=== PATIENT | male | born 1940 | race Caucasian/White ===

== ENCOUNTER 2017-07-19 17:24 | Inpatient (IN) | payer OTHER, MEDICARE ==
[~2017-07-19] VITALS: Ht 170.2 cm; Wt 96.5 kg
[~2017-07-19 17:24] MED LIST: ACET500T58 PO; ASPI-391 PO; BENA20TA12 PO; CMD5 PO; CYCL10TA6 PO; DLN100 PO; ENOX100I SQ; HYDRTAB53 PO; NITR0.4S UT; OMEP40CA PO; PHN/100 PO; PRED10TA PO; SUMA50TA15 PO; VERA240T20 PO
[2017-07-19] MEDS ORDERED: HYDR-4079 PO (17:49)
[2017-07-19] MEDS ORDERED: ASPI81TA28 PO (17:49)
[2017-07-19] MEDS ORDERED: OMEP40CA41 PO (17:49)
[2017-07-19] MEDS ORDERED: CRD4 PO (17:49)
[2017-07-19] MEDS ORDERED: FRS/40 PO (17:49)
--- NOTE | 2017-07-19 17:49 | EMERGENCY ROOM VISIT NOTE ---
History Report prepared by David: Jhonny Covarrubias Under the Supervision of: Dr. Will Ramirez D.O. First contact with patient: 17:32 Chief Complaint: CHEST PAIN Stated Complaint: CHEST PAIN Nursing Triage Summary: pt reports chest pain started a couple ago ago took 1 81 mg asa `1 hour ago. sx started after eating History of Present Illness The patient is a 77 year old male who presents to the Emergency Room with complaints of constant, severe, neck pain that radiates to his chest beginning a few hours ago. The patient states he was on his way home from [place] when his neck started hurting. He reports he stopped and took 81 mg of Aspirin. The patient notes he ate steak and vegetables for dinner. He states he also has shortness of breath and a headache. The patient reports deep breathing increases his discomfort. He notes he has a history of a PE and does not know if it feels the same as before. The patient states he was on blood thinners but is not on them anymore. He reports he is on Dilantin, blood pressure medication , and Prilosec. The patient denies abdominal pain, nausea, vomiting, pain in legs, swelling in legs, back pain, and a history of smoking or alcohol use. Source of History: patient Onset: few hours ago Position: neck, chest Symptom Intensity: severe Timing: constant Modifying Factors (Worsening): breathing (deep) Associated Symptoms: + headache, + SOB, No nausea, No vomiting, No abdominal pain, No back pain Note: Denies: pain in legs, swelling in legs Review of Systems See HPI for pertinent positives & negatives. A total of 10 systems reviewed and were otherwise negative. Past Medical & Surgical Medical Problems: (1) Benign hypertension (2) Seizure (3) Sleep apnea (4) TIA Family History Diabetes mellitus Heart disease Hypertension Lung disease Seizures Social History Smoking Status: Never Smoker Marital Status: Housing Status: lives with family Occupation Status: retired Current/Historical Medications Scheduled Aspirin (Aspirin Ec), 81 MG PO DAILY Benazepril & Hydrochlorothiazi (Lotensin Hct 20MG/25MG), 1 TAB PO DAILY Doxazosin Mesylate (Doxazosin Mesylate), 8 MG PO DAILY Furosemide (Lasix), 40 MG PO DIRECTED Nitroglycerin (Nitrostat), 0.4 MG UT PRN Omeprazole (Prilosec), 40 MG PO DAILY Phenytoin Sodium (Dilantin), 300 MG PO QAM Prednisone Tab (Prednisone), 10 MG PO QAM Sumatriptan Succinate (Imitrex), 50 MG PO PRN Verapamil Sust Rel (Calan Sr Ext Rel), 240 MG PO DAILY Scheduled PRN Hydrocodone/Acetaminophen 10MG/325MG ([place] 10MG/325MG), 1 TAB PO Q4H PRN for Pain Allergies Coded Allergies: No Known Allergies (Unverified , 02/19/15) spouse Physical Exam Vital Signs Date Time Temp Pulse Resp B/P (MAP) Pulse Ox O2 Delivery O2 Flow Rate FiO2 07/19/17 21:39 94 Nasal Cannula 3.0 07/19/17 21:21 76 22 118/76 93 Room Air 07/19/17 19:29 70 20 132/82 92 Room Air 07/19/17 17:57 72 07/19/17 17:56 94 Room Air 07/19/17 17:56 94 Room Air 07/19/17 17:30 36.6 77 22 141/82 93 Room Air Physical Exam GENERAL: Patient is awake, alert, and in moderate distress. Patient is showing anxiety and appear in pain. EYES: The conjunctivae are clear. The pupils are round and reactive. EARS, NOSE, MOUTH AND THROAT: The nose is without any evidence of any deformity. Mucous membranes are moist tongue is midline NECK: The neck is nontender and supple. RESPIRATORY: Normal respiratory effort is noted there is no evidence of wheezing rhonchi or rales CARDIOVASCULAR: Regular rate and rhythm noted there no murmurs rubs or gallops normal S1 normal S2 GASTROINTESTINAL: The abdomen is mildly distended but soft. No guarding or rigidity. Bowel sounds are present in all quadrants. Abdomen is nontender MUSCULOSKELETAL/EXTREMITIES: There is no evidence of gross deformity full range of motion is noted in the hips and shoulders SKIN: There is no obvious evidence of any rash. There are no petechiae, pallor or cyanosis noted. Trace pedal edema bilaterally. NEUROLOGIC: Patient is awake alert and oriented x3 Medical Decision & Procedures ER Provider Diagnostic Interpretation: Radiology results as stated below per my review and radiologist interpretation: (CHEST FOR PE) ANGIO WITH CT DOSE: 609.43 mGy.cm HISTORY: 77 years-old Male presents with acute atypical chest pain TECHNIQUE: Multiple CTA images of the chest were obtained after the intravenous administration of 93 ml Optiray 320. Coronal and sagittal MIPS were obtained from the axial data set and were submitted for review. A dose lowering technique was utilized adhering to the principles of ALARA. COMPARISON: Chest radiograph of same day, CTA of the chest 02/17/2014. FINDINGS: CTA: Moderate enlargement of the heart. Coronary arterial disease. 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 No aortic dissection identified. The imaged great vessels appear to be patent. Moderate atherosclerosis of the aorta. The pulmonary arterial tree is not well opacified. The lobar, segmental and subsegmental branches are not seen secondary to extensive respiratory motion. No central pulmonary embolus identified. CT CHEST: There is an ill-defined 1.5 x 0.9 cm low attenuating nodule of the inferior left thyroid lobe. Scattered nonspecific prominent lymph nodes throughout the mediastinum without pathologically enlarged lymph nodes identified. There is no pneumothorax or pleural effusion. Mild subsegmental scarring of the left lung apex. Scattered bilateral calcified granulomas. Groundglass and linear consolidative subsegmental opacities of the lung bases suggest areas of atelectasis/scarring. No lobar airspace consolidation to suggest pneumonia. Central airways are patent. Moderate sized hiatal hernia with partially intrathoracic stomach. No acute abnormality of the imaged upper abdomen. Mild symmetric bilateral gynecomastia. Bones appear intact. Remote appearing right-sided rib fractures. IMPRESSION: 1. Very limited study secondary to extensive respiratory motion. No central pulmonary embolus identified. 2. Mild subsegmental bibasilar atelectasis without focal airspace consolidation to suggest pneumonia. 3. Cardiomegaly with fusiform aneurysmal dilation of the ascending thoracic aorta beginning distal to the sinotubular junction, 4.7 x 4.7 cm slightly increased in size from comparison. 4. Moderate hiatal hernia. The above report was generated using voice recognition software. It may contain grammatical, syntax or spelling errors. Electronically signed by: Fidencio Soliz M.D. 07/19/2017 8:12 PM Dictated Date/Time: 07/19/2017 8:03 PM CHEST ONE VIEW PORTABLE HISTORY: 77 years-old Male CHEST PAIN acute atypical chest pain COMPARISON: Chest radiograph 11/08/2015 TECHNIQUE: Portable AP view of the chest FINDINGS: Cardiac silhouette is again enlarged. No pneumothorax or pleural effusion. Linear subsegmental bibasilar opacities are noted with areas of chronic interstitial coarsening. Moderate hiatal hernia. Bones of the chest appear grossly intact. IMPRESSION: 1. Cardiomegaly without overt pulmonary edema. 2. Linear subsegmental bibasilar opacities suggest atelectasis. 3. Hiatal hernia. The above report was generated using voice recognition software. It may contain grammatical, syntax or spelling errors. Electronically signed by: Fidencio Soliz M.D. 07/19/2017 6:58 PM Dictated Date/Time: 07/19/2017 6:57 PM Laboratory Results 07/19/17 17:45 Red Blood Count 4.49, Mean Corpuscular Volume 96.0, Mean Corpuscular Hemoglobin 33.6, Mean Corpuscular Hemoglobin Concent 35.0, Mean Platelet Volume 11.0, Neutrophils (%) (Auto) 74.1, Lymphocytes (%) (Auto) 12.5, Monocytes (%) (Auto) 10.3, Eosinophils (%) (Auto) 2.7, Basophils (%) (Auto) 0.3, Neutrophils # (Auto ) 7.88, Lymphocytes # (Auto) 1.33, Monocytes # (Auto) 1.09, Eosinophils # (Auto ) 0.29, Basophils # (Auto) 0.03 07/19/17 17:45 Test 07/19/17 17:45 White Blood Count 10.63 K/uL (4.8-10.8) Red Blood Count 4.49 M/uL (4.7-6.1) Hemoglobin 15.1 g/dL (14.0-18.0) Hematocrit 43.1 % (42-52) Mean Corpuscular Volume 96.0 fL (80-100) Mean Corpuscular Hemoglobin 33.6 pg (25-34) Mean Corpuscular Hemoglobin Concent 35.0 g/dl (32-36) Platelet Count 202 K/uL (130-400) Mean Platelet Volume 11.0 fL (7.4-10.4) Neutrophils (%) (Auto) 74.1 % Lymphocytes (%) (Auto) 12.5 % Monocytes (%) (Auto) 10.3 % Eosinophils (%) (Auto) 2.7 % Basophils (%) (Auto) 0.3 % Neutrophils # (Auto) 7.88 K/uL (1.4-6.5) Lymphocytes # (Auto) 1.33 K/uL (1.2-3.4) Monocytes # (Auto) 1.09 K/uL (0.11-0.59) Eosinophils # (Auto) 0.29 K/uL (0-0.5) Basophils # (Auto) 0.03 K/uL (0-0.2) RDW Standard Deviation 46.6 fL (36.4-46.3) RDW Coefficient of Variation 13.3 % (11.5-14.5) Immature Granulocyte % (Auto) 0.1 % Immature Granulocyte # (Auto) 0.01 K/uL (0.00-0.02) Prothrombin Time 10.7 SECONDS (9.0-12.0) Prothromb Time International Ratio 1.0 (0.9-1.1) Activated Partial Thromboplast Time 25.0 SECONDS (21.0-31.0) Partial Thromboplastin Ratio 1.0 D-Dimer 500 ug/L FEU (0-500) Anion Gap 9.0 mmol/L (3-11) Est Creatinine Clear Calc Drug Dose 77.0 ml/min Estimated GFR () 96.0 Estimated GFR (Non- 82.9 BUN/Creatinine Ratio 20.0 (10-20) Calcium Level 8.4 mg/dl (8.5-10.1) Total Bilirubin 0.3 mg/dl (0.2-1) Direct Bilirubin < 0.1 mg/dl (0-0.2) Aspartate Amino Transf (AST/SGOT) 16 U/L (15-37) Alanine Aminotransferase (ALT/SGPT) 27 U/L (12-78) Alkaline Phosphatase 83 U/L (45-117) Total Creatine Kinase 52 U/L (39-308) Creatine Kinase MB 0.8 ng/ml (0.5-3.6) Creatine Kinase MB Ratio 1.5 (0-3.0) Troponin I < 0.015 ng/ml (0-0.045) Total Protein 6.7 gm/dl (6.4-8.2) Albumin 3.5 gm/dl (3.4-5.0) Lipase 56 U/L (73-393) Phenytoin (Dilantin) Level 17.0 mcg/mL (10-20) Laboratory results per my review. Medications Administered Medications (Trade) Dose Ordered Sig/Mike Route Start Time Stop Time Status Last Admin Dose Admin Al Hydroxide/Mg Hydroxide (Maalox Susp) 30 ml NOW STAT PO 07/19/17 19:12 07/19/17 19:13 DC 07/19/17 19:22 30 ML Morphine Sulfate (MoRPHine SULFATE INJ) 4 mg Q15M PRN IV 07/19/17 20:00 08/02/17 19:59 07/19/17 21:19 4 MG Ondansetron HCl (Zofran Inj) 4 mg NOW STAT IV 07/19/17 19:59 07/19/17 20:00 DC 07/19/17 20:08 4 MG ECG Indication: chest pain Rate (beats per minute): 78 Rhythm: normal sinus Findings: no ectopy, other (No acute ST segment abnormalities.) Comparison ECG Date: 02/19/14 Change: no significant change Change: Patient's EKG was interpreted by me. ED Course 1732: The patient was evaluated in room A11B. A complete history and physical examination were performed. 1911: Ordered Maalox Susp 30ml PO 1913: I reevaluated the patient and discussed current exam findings. He agreed to have a CT scan completed. 1958: Ordered Ondansetron HCl 4mg IV 1999: Ordered Morphine Sulfate 4mg IV 2019: Upon reevaluation, the patient is resting comfortably. I discussed results and treatment plan with him. He verbalizes agreement and understanding. The patient will be evaluated for further management and care. 2200: I discussed the patient's case with Dr. Chavira, [facility] Hospitalist. The patient will be evaluated for further management and care. Medical Decision Differential diagnosis: Etiologies such as cardiac ischemia, aortic dissection, pulmonary embolism, pneumonia, pneumothorax, musculoskeletal, infections, pericarditis, myocarditis , esophageal rupture, gastrointestinal, as well as others were entertained. Nursing notes reviewed. The patient is a 77-year-old male who presented to the emergency department for an evaluation of chest discomfort. The patient describes heaviness which was retrosternal and rating to his neck. The patient states that the patient was nonexertional however because of his age and other comorbidities further tests were obtained to rule out a cardiac cause for his symptoms. I discussed the patient's laboratory and radiographic studies with him. I also discussed the limitations of the emergency department workup for chest pain with him. The patient was reevaluated multiple times. He was also treated with Maalox as well as pain medication. His symptoms slowly improved. Given the patient's age and comorbidities I discussed his case with the on-call [facility] hospitalist. The patient was uncomfortable with the initial workup for ruling out cardiac disease. He also states that he [place] approximately [place] away and felt he may have trouble returning to the emergency department if his symptoms worsen. Medication Reconcilliation Current Medication List: was personally reviewed by me Blood Pressure Screening Patient's blood pressure: Elevated blood pressure Blood pressure disposition: Elevated BP felt to be situational Consults Time Called: 2027 Consulting Physician: Dr. Chavira, [facility] Hospitalist Returned Call: 2200 I discussed the patient's case with Dr. Chavira, [facility] Hospitalist. The patient will be evaluated for further management and care. Impression Primary Impression: Substernal precordial chest pain Additional Impression: Hiatal hernia Scribe Attestation The scribe's documentation has been prepared under my direction and personally reviewed by me in its entirety. I confirm that the note above accurately reflects all work, treatment, procedures, and medical decision making performed by me. Departure Information Dispostion Being Evaluated By Hospitalist Referrals Jyoti Recinos PA-C (PCP) Patient Instructions My [facility] Health Problem Qualifiers
[2017-07-19 18:04] LABS: BASO % 0.3 %; BASO ABS # 0.03 K/uL (0-0.2); EOS % 2.7 %; EOS ABS # 0.29 K/uL (0-0.5); HEMATOCRIT 43.1 % (42-52); HEMOGLOBIN 15.1 g/dL (14.0-18.0); IG# 0.01 K/uL (0.00-0.02); LYMPH % 12.5 %; LYMPH ABS # 1.33 K/uL (1.2-3.4); MEAN CORPUSCULAR HEMOGLOBIN 33.6 pg (25-34); MONO % 10.3 %; MONO ABS # 1.09 K/uL (0.11-0.59); NEUT % 74.1 %; NEUT ABS # 7.88 K/uL (1.4-6.5); PLATELET COUNT 202 K/uL (130-400); RED CELL DISTRIBUTION WIDTH CV 13.3 % (11.5-14.5); RED CELL DISTRIBUTION WIDTH SD 46.6 fL (36.4-46.3); WHITE BLOOD COUNT 10.63 K/uL (4.8-10.8)
[2017-07-19 18:28] LABS: ALBUMIN 3.5 gm/dl (3.4-5.0); ALT/SGPT 27 U/L (12-78); BLOOD UREA NITROGEN 18 mg/dl (7-18); CALCIUM 8.4 mg/dl (8.5-10.1); CARBON DIOXIDE 30 mmol/L (21-32); CREATININE 0.88 mg/dl (0.60-1.40); GLUCOSE 140 mg/dl (70-99); LIPASE 56 U/L (73-393); POTASSIUM 3.4 mmol/L (3.5-5.1); SODIUM 141 mmol/L (136-145)
[2017-07-19 18:34] LABS: ALKALINE PHOSPHATASE 83 U/L (45-117); AST/SGOT 16 U/L (15-37); CKMB 0.8 ng/ml (0.5-3.6); TOTAL PROTEIN 6.7 gm/dl (6.4-8.2)
--- NOTE | 2017-07-19 18:59 | DIAGNOSTIC IMAGING REPORT ---
CHEST ONE VIEW PORTABLE HISTORY: 77 years-old Male CHEST PAIN acute atypical chest pain COMPARISON: Chest radiograph 11/08/2015 TECHNIQUE: Portable AP view of the chest FINDINGS: Cardiac silhouette is again enlarged. No pneumothorax or pleural effusion. Linear subsegmental bibasilar opacities are noted with areas of chronic interstitial coarsening. Moderate hiatal hernia. Bones of the chest appear grossly intact. IMPRESSION: 1. Cardiomegaly without overt pulmonary edema. 2. Linear subsegmental bibasilar opacities suggest atelectasis. 3. Hiatal hernia. The above report was generated using voice recognition software. It may contain grammatical, syntax or spelling errors. Electronically signed by: Fidencio Soliz M.D. 07/19/2017 6:58 PM Dictated Date/Time: 07/19/2017 6:57 PM
[2017-07-19] MEDS ORDERED: ALUMINUM/MAGNESIUM SUSP 30 ML UDC PO STA (19:12)
[2017-07-19] MEDS ORDERED: OPTIRAY 320 IV PRN (19:30)
[2017-07-19] MEDS ORDERED: ONDANSETRON INJ 2 MG/ML 2 ML VIAL IV STA (19:59)
[2017-07-19] MEDS: MoRPHine SULFATE 4 MG/ML 1 ML CARP\\VIAL IV PRN ×3 (20:08→23:09)
--- NOTE | 2017-07-19 20:14 | DIAGNOSTIC IMAGING REPORT ---
(CHEST FOR PE) ANGIO WITH CT DOSE: 609.43 mGy.cm HISTORY: 77 years-old Male presents with acute atypical chest pain TECHNIQUE: Multiple CTA images of the chest were obtained after the intravenous administration of 93 ml Optiray 320. Coronal and sagittal MIPS were obtained from the axial data set and were submitted for review. A dose lowering technique was utilized adhering to the principles of ALARA. COMPARISON: Chest radiograph of same day, CTA of the chest 02/17/2014. FINDINGS: CTA: Moderate enlargement of the heart. Coronary arterial disease. 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 No aortic dissection identified. The imaged great vessels appear to be patent. Moderate atherosclerosis of the aorta. The pulmonary arterial tree is not well opacified. The lobar, segmental and subsegmental branches are not seen secondary to extensive respiratory motion. No central pulmonary embolus identified. CT CHEST: There is an ill-defined 1.5 x 0.9 cm low attenuating nodule of the inferior left thyroid lobe. Scattered nonspecific prominent lymph nodes throughout the mediastinum without pathologically enlarged lymph nodes identified. There is no pneumothorax or pleural effusion. Mild subsegmental scarring of the left lung apex. Scattered bilateral calcified granulomas. Groundglass and linear consolidative subsegmental opacities of the lung bases suggest areas of atelectasis/scarring. No lobar airspace consolidation to suggest pneumonia. Central airways are patent. Moderate sized hiatal hernia with partially intrathoracic stomach. No acute abnormality of the imaged upper abdomen. Mild symmetric bilateral gynecomastia. Bones appear intact. Remote appearing right-sided rib fractures. IMPRESSION: 1. Very limited study secondary to extensive respiratory motion. No central pulmonary embolus identified. 2. Mild subsegmental bibasilar atelectasis without focal airspace consolidation to suggest pneumonia. 3. Cardiomegaly with fusiform aneurysmal dilation of the ascending thoracic aorta beginning distal to the sinotubular junction, 4.7 x 4.7 cm slightly increased in size from comparison. 4. Moderate hiatal hernia. The above report was generated using voice recognition software. It may contain grammatical, syntax or spelling errors. Electronically signed by: Fidencio Soliz M.D. 07/19/2017 8:12 PM Dictated Date/Time: 07/19/2017 8:03 PM
[2017-07-19] MEDS ORDERED: POLYETHYLENE (MIRALAX) 17 GM PACK PO PRN (22:45)
[2017-07-19] MEDS ORDERED: ACETAMINOPHEN 325 MG TAB PO PRN (22:45)
[2017-07-19] MEDS ORDERED: ONDANSETRON INJ 2 MG/ML 2 ML VIAL IV PRN (22:45)
[2017-07-19] MEDS ORDERED: NITROGLYCERIN 0.4 MG SL PER TAB CHARGE SL PRN (22:45)
[2017-07-19] MEDS ORDERED: MAGNESIUM HYDROXIDE SUSP 30 ML UDC PO PRN (22:45)
[2017-07-19] MEDS ORDERED: ALUMINUM/MAGNESIUM/SIMETH (MAALOX MAX) 30 ML UDC PO PRN (22:45)
[2017-07-19] MEDS ORDERED: POTASSIUM CHLORIDE 10 MEQ TABCR PO STA (23:03)
[2017-07-19] MEDS ORDERED: POTASSIUM CHLORIDE 20 MEQ TABCR PO STA (23:03)
--- NOTE | 2017-07-19 23:21 | History and Physical ---
History & Physical Date & Time of Service: Jul 19, 2017 at 22:55 Chief Complaint: Chest Pain Primary Care Physician: Jyoti Recinos PA-C History of Present Illness Source: patient, family This is a 77 yo m with a h/o PE and TIA that presents to us with substernal chest pain with radiation to the right neck. The family was apparently out for dinner and soon after dinner he experienced sharp right sided neck pain and substernal chest pain. He was SOB acutely without nausea or diaphoresis. was concerned because of his history of PE and TIA and brought him into the ED for evaluation. He states that his pain is currently a 3/10 and is now just an "ache" it is worse with any sort of deep breathing. He denies any SOB now however he is laying flat with oxygen for his severe BRIANA which he does not use a CPAP for due to intolerance. He has no history of MN, non smoker but exposure to second hand smoke as a child. Patient states he would be unable to undergo exercise stress test secondary to limited ambulation. Aside from the chest pain he has been suffering from intermittent RUQ pain whenever he eats fatty food or dairy. It was originally short lived but is now lasting for many hours and the notes he has been purposely not eating as he is afraid to trigger the pain. He has no accompanied diarrhea or constipation with it or any blood in his stool. He had an appendectomy but not cholecystectomy. He has also had worsening incontinence and straining with urination. He typically suffers from a lot of nocturia however feels still as frequent but volume is low. Has only been on Doxazosin for his BPH. Patient is at [facility] with mild cognitive impairment. Past Medical/Surgical History Medical Problems: (1) Benign hypertension Status: Chronic (2) Seizure Status: Chronic (3) Sleep apnea Status: Chronic (4) TIA Status: Resolved Family History Diabetes mellitus Heart disease Hypertension Lung disease Seizures Social History Smoking Status: Never Smoker Smokeless Tobacco Use: No Alcohol Use: none Drug Use: none Marital Status: Housing status: lives with significant other Occupational Status: retired Multi-Drug Resistant Organisms History of MDRO: No Allergies Coded Allergies: No Known Allergies (Unverified , 02/19/15) spouse Home Medications Scheduled Aspirin (Aspirin Ec), 81 MG PO DAILY Benazepril & Hydrochlorothiazi (Lotensin Hct 20MG/25MG), 1 TAB PO DAILY Doxazosin Mesylate (Doxazosin Mesylate), 8 MG PO DAILY Furosemide (Lasix), 40 MG PO DIRECTED Nitroglycerin (Nitrostat), 0.4 MG UT PRN Omeprazole (Prilosec), 40 MG PO DAILY Phenytoin Sodium (Dilantin), 300 MG PO QAM Prednisone Tab (Prednisone), 10 MG PO QAM Sumatriptan Succinate (Imitrex), 50 MG PO PRN Verapamil Sust Rel (Calan Sr Ext Rel), 240 MG PO DAILY Scheduled PRN Hydrocodone/Acetaminophen 10MG/325MG ([place] 10MG/325MG), 1 TAB PO Q4H PRN for Pain Review of Systems Constitutional: No fever, No chills, No sweats Eyes: No worsening of vision ENT: No hearing loss Respiratory: No cough, No sputum, No wheezing, No shortness of breath, No dyspnea on exertion, No dyspnea at rest, No hemoptysis Cardiovascular: + chest pain (as above ) Abdomen: + pain (as above ), No nausea, No vomiting, No diarrhea, No constipation, No GI bleeding Musculoskeletal: No joint pain, No muscle pain Genitourinary - Male: + urinary frequency, + urinary retention, + urinary incontinence, No hematuria, No dysuria Neurologic: No weakness, No numbness/tingling, No balance problems Psychiatric: No depression symptoms Endocrine: No fatigue Hematologic / Lymphatic: No abnormal bleeding/bruising Integumentary: No rash Allergic / Immunologic: No environmental allergies Physical Exam Vital Signs Date Time Temp Pulse Resp B/P (MAP) Pulse Ox O2 Delivery O2 Flow Rate FiO2 07/19/17 21:39 94 Nasal Cannula 3.0 07/19/17 21:21 76 22 118/76 93 Room Air 07/19/17 19:29 70 20 132/82 92 Room Air 07/19/17 17:57 72 07/19/17 17:56 94 Room Air 07/19/17 17:56 94 Room Air 07/19/17 17:30 36.6 77 22 141/82 93 Room Air General Appearance: no apparent distress Head: normocephalic, atraumatic Eyes: normal inspection ENT: normal ENT inspection Neck: supple, + pertinent finding (no torticolis noted) Respiratory/Chest: normal breath sounds, no respiratory distress, no accessory muscle use, + decreased breath sounds (bilat bases) Cardiovascular: regular rate, rhythm, no murmur, normal peripheral pulses Abdomen/GI: normal bowel sounds, non tender, + distended, + pertinent finding ( positive adams sign, no CVA tendernes, rebound, obturator sign or vivian point tenderness) Back: normal inspection, no CVA tenderness, normal range of motion Extremities/Musculoskelatal: normal inspection, no calf tenderness, + pedal edema (tr bilat ) Neurologic/Psych: alert, normal mood/affect, oriented x 3, + pertinent finding (forgetful during interview, some orientation questions required coaxing ) Skin: normal color, warm/dry, no rash Lymphatic: no adenopathy Diagnostics Laboratory Results Results Past 24 Hours Test 07/19/17 17:45 Range/Units White Blood Count 10.63 4.8-10.8 K/uL Red Blood Count 4.49 4.7-6.1 M/uL Hemoglobin 15.1 14.0-18.0 g/dL Hematocrit 43.1 42-52 % Mean Corpuscular Volume 96.0 80-100 fL Mean Corpuscular Hemoglobin 33.6 25-34 pg Mean Corpuscular Hemoglobin Concent 35.0 32-36 g/dl Platelet Count 202 130-400 K/uL Mean Platelet Volume 11.0 7.4-10.4 fL Neutrophils (%) (Auto) 74.1 % Lymphocytes (%) (Auto) 12.5 % Monocytes (%) (Auto) 10.3 % Eosinophils (%) (Auto) 2.7 % Basophils (%) (Auto) 0.3 % Neutrophils # (Auto) 7.88 1.4-6.5 K/uL Lymphocytes # (Auto) 1.33 1.2-3.4 K/uL Monocytes # (Auto) 1.09 0.11-0.59 K/uL Eosinophils # (Auto) 0.29 0-0.5 K/uL Basophils # (Auto) 0.03 0-0.2 K/uL RDW Standard Deviation 46.6 36.4-46.3 fL RDW Coefficient of Variation 13.3 11.5-14.5 % Immature Granulocyte % (Auto) 0.1 % Immature Granulocyte # (Auto) 0.01 0.00-0.02 K/uL Prothrombin Time 10.7 9.0-12.0 SECONDS Prothromb Time International Ratio 1.0 0.9-1.1 Activated Partial Thromboplast Time 25.0 21.0-31.0 SECONDS Partial Thromboplastin Ratio 1.0 D-Dimer 500 0-500 ug/L FEU Sodium Level 141 136-145 mmol/L Potassium Level 3.4 3.5-5.1 mmol/L Chloride Level 102 98-107 mmol/L Carbon Dioxide Level 30 21-32 mmol/L Anion Gap 9.0 3-11 mmol/L Blood Urea Nitrogen 18 7-18 mg/dl Creatinine 0.88 0.60-1.40 mg/dl Est Creatinine Clear Calc Drug Dose 77.0 ml/min Estimated GFR () 96.0 Estimated GFR (Non- 82.9 BUN/Creatinine Ratio 20.0 10-20 Random Glucose 140 70-99 mg/dl Calcium Level 8.4 8.5-10.1 mg/dl Total Bilirubin 0.3 0.2-1 mg/dl Direct Bilirubin < 0.1 0-0.2 mg/dl Aspartate Amino Transf (AST/SGOT) 16 15-37 U/L Alanine Aminotransferase (ALT/SGPT) 27 12-78 U/L Alkaline Phosphatase 83 45-117 U/L Total Creatine Kinase 52 39-308 U/L Creatine Kinase MB 0.8 0.5-3.6 ng/ml Creatine Kinase MB Ratio 1.5 0-3.0 Troponin I < 0.015 0-0.045 ng/ml Total Protein 6.7 6.4-8.2 gm/dl Albumin 3.5 3.4-5.0 gm/dl Lipase 56 73-393 U/L Phenytoin (Dilantin) Level 17.0 10-20 mcg/mL Diagnostic Radiology (CHEST FOR PE) ANGIO WITH CT DOSE: 609.43 mGy.cm HISTORY: 77 years-old Male presents with acute atypical chest pain TECHNIQUE: Multiple CTA images of the chest were obtained after the intravenous administration of 93 ml Optiray 320. Coronal and sagittal MIPS were obtained from the axial data set and were submitted for review. A dose lowering technique was utilized adhering to the principles of ALARA. COMPARISON: Chest radiograph of same day, CTA of the chest 02/17/2014. FINDINGS: CTA: Moderate enlargement of the heart. Coronary arterial disease. 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 No aortic dissection identified. The imaged great vessels appear to be patent. Moderate atherosclerosis of the aorta. The pulmonary arterial tree is not well opacified. The lobar, segmental and subsegmental branches are not seen secondary to extensive respiratory motion. No central pulmonary embolus identified. CT CHEST: There is an ill-defined 1.5 x 0.9 cm low attenuating nodule of the inferior left thyroid lobe. Scattered nonspecific prominent lymph nodes throughout the mediastinum without pathologically enlarged lymph nodes identified. There is no pneumothorax or pleural effusion. Mild subsegmental scarring of the left lung apex. Scattered bilateral calcified granulomas. Groundglass and linear consolidative subsegmental opacities of the lung bases suggest areas of atelectasis/scarring. No lobar airspace consolidation to suggest pneumonia. Central airways are patent. Moderate sized hiatal hernia with partially intrathoracic stomach. No acute abnormality of the imaged upper abdomen. Mild symmetric bilateral gynecomastia. Bones appear intact. Remote appearing right-sided rib fractures. IMPRESSION: 1. Very limited study secondary to extensive respiratory motion. No central pulmonary embolus identified. 2. Mild subsegmental bibasilar atelectasis without focal airspace consolidation to suggest pneumonia. 3. Cardiomegaly with fusiform aneurysmal dilation of the ascending thoracic aorta beginning distal to the sinotubular junction, 4.7 x 4.7 cm slightly increased in size from comparison. 4. Moderate hiatal hernia. CHEST ONE VIEW PORTABLE HISTORY: 77 years-old Male CHEST PAIN acute atypical chest pain COMPARISON: Chest radiograph 11/08/2015 TECHNIQUE: Portable AP view of the chest FINDINGS: Cardiac silhouette is again enlarged. No pneumothorax or pleural effusion. Linear subsegmental bibasilar opacities are noted with areas of chronic interstitial coarsening. Moderate hiatal hernia. Bones of the chest appear grossly intact. IMPRESSION: 1. Cardiomegaly without overt pulmonary edema. 2. Linear subsegmental bibasilar opacities suggest atelectasis. 3. Hiatal hernia. EKG HR 78, no ectopy or ischemic changes appreciated Impression Assessment and Plan This is a 77 yo m with a history of PE/ TIA here for chest pain evaluation; Heart score is 3 Chest pain NYD - assess for cardiac source, tele admission, HEART score is 3 with low suspicion for cardiac source - troponin trend - patient unable to undergo exercise stress test, dobutamine stress test ordered at this time; if positive troponin will change to echo alone - npo after midnight - if positive troponin on repeat will add heparin drip - EKG in am - continue ASA 81 mg daily RUQ pain, nausea, poor appetite- concerning for cholelithiasis/ cholecysitis - USG abd - CMP repeat in am - NPO at this time Severe BPH - continue Doxazosin 8 mg daily; consider addition of finasteride/ Tamsulosin ( if bp could tolerate) - Straight cath prn - UA, culture if indicated Seizure disorder - Dilantin 300 mg q am HTN - continue Verapamil 240 mg daily Continue Benazepril 20 mg and HCTZ 25 mg daily PMR - cont Pred 10 mg daily, discussed consideration to lowest titratable dose as he has never tried a dose continually < 10 mg Hiatal hernia/ GERD - Omeprazole 40 mg --> Protonix equivalent Mild cognitive impairment - discussed addition of memantine possibly as an outpatient DVT Prophylaxis/ H/O PE - SCD, consider chemical prophylaxis after troponin trend eval Full code Resident Physician Supervision Note: I was present with Dr. Campos during the history and exam. I discussed the case with the resident and agree with the findings and plan as documented in the note. Any exceptions or clarifications are listed here: 77 y/o M HTN, seizures, BPH, cognitive impairment, Hx TIA, Hx PE. Pt presents with CP vs epigastric pain. OE AAO x 2 S1,2 R CTAB Tender in upper quadrants LE edema present P: Pt assigned to obs for R/O MN He was sent for an RUQ US as well Will cont Verapamil, Benazepril Provided with ASA Cont Doxazosin, Flomax Documented By: Sunday Chavira Level of Care Telemetry Resuscitation Status FULL RESUSCITATION VTE Prophylaxis VTE Risk Assessment Done? Y/N: Yes Risk Level: High Given or contraindicated: SCD's Note Total Time: Critical Care 30 - 74 minutes Additional Copies To Jyoti Recinos PA-C
[2017-07-19 23:27] VITALS: BP 131/71; PULSE 77; TEMP 37; O2SAT 93; Ht 170.2 cm; Wt 96.5 kg
[2017-07-20] MEDS: MoRPHine SULFATE 2 MG/ML CARP IV PRN ×3 (01:26→06:02)
[2017-07-20 01:29] VITALS: BP 122/75; PULSE 75; TEMP 36.9; O2SAT 92
[2017-07-20] MEDS ORDERED: IV FLUIDS COMPLETED PRN (03:00)
[2017-07-20 05:30] VITALS: BP 114/69; PULSE 86; TEMP 36.3; O2SAT 91
[2017-07-20] MEDS ORDERED: GI COCKTAIL PO ONE (06:30)
[2017-07-20 06:34] LABS: BASO % 0.2 %; BASO ABS # 0.02 K/uL (0-0.2); EOS % 3.3 %; EOS ABS # 0.35 K/uL (0-0.5); HEMATOCRIT 43.1 % (42-52); HEMOGLOBIN 14.4 g/dL (14.0-18.0); IG# 0.02 K/uL (0.00-0.02); LYMPH % 11.7 %; LYMPH ABS # 1.25 K/uL (1.2-3.4); MEAN CELL VOLUME 97.1 fL (80-100); MEAN CORPUSCULAR HEMOGLOBIN 32.4 pg (25-34); MEAN CORPUSCULAR HGB CONC 33.4 g/dl (32-36); MEAN PLATELET VOLUME 11.2 fL (7.4-10.4); MONO % 12.9 %; MONO ABS # 1.38 K/uL (0.11-0.59); NEUT % 71.7 %; NEUT ABS # 7.65 K/uL (1.4-6.5); PLATELET COUNT 198 K/uL (130-400); RED CELL DISTRIBUTION WIDTH CV 13.4 % (11.5-14.5); RED CELL DISTRIBUTION WIDTH SD 47.1 fL (36.4-46.3); WHITE BLOOD COUNT 10.67 K/uL (4.8-10.8)
--- NOTE | 2017-07-20 06:53 | DIAGNOSTIC IMAGING REPORT ---
ABDOMEN COMPLETE (US) CLINICAL HISTORY: RUQ pain with fatty food COMPARISON STUDY: CT of the abdomen and pelvis August 13, 2012 and right upper corner ultrasound November 12, 2015. FINDINGS: Exam is mildly compromised by suboptimal penetration. No hepatic lesions are identified and there is no biliary ductal dilatation. No shadowing gallstones are noted. A small amount of sludge is noted within the gallbladder. There is a suspected tiny gallbladder polyp. No gallbladder wall thickening is noted. There was no sonographic Culver sign. Pancreas was obscured by overlying bowel gas. The right kidney measures 11.1 cm and the left measured 12.7 cm. There were numerous bilateral renal lesions. The majority of these were anechoic and reflect cysts. A few contain thin septations and likely reflect cysts as well. The largest is within the left kidney, 6.4 cm no hydronephrosis was noted. The abdominal aorta was partially obscured. Caliber of the distal abdominal aorta was normal. Size of the spleen was normal. IMPRESSION: 1. Suspected sludge within the gallbladder. No shadowing gallstones. Suspected tiny gallbladder polyp. No evidence for acute cholecystitis. 2. No biliary ductal dilatation. 3. Study compromised by suboptimal penetration. Largely obscured pancreas. 4. Numerous bilateral renal cysts, several of which contain thin septations. Electronically signed by: Mo Stallings M.D. 07/20/2017 6:52 AM Dictated Date/Time: 07/20/2017 6:47 AM
[2017-07-20] MEDS ORDERED: ALUMINUM/MAGNESIUM SUSP 18 ML, LIDOCAINE HCL 2% VISCOUS SOLN 6 ML, BARCODE IDENTIFIER 1 EA PO ONE ×2 (07:00)
[2017-07-20 07:05] LABS: ALBUMIN 3.3 gm/dl (3.4-5.0); CALCIUM 8.7 mg/dl (8.5-10.1); CREATININE 0.74 mg/dl (0.60-1.40); POTASSIUM 3.6 mmol/L (3.5-5.1)
[2017-07-20 07:09] LABS: TOTAL PROTEIN 6.4 gm/dl (6.4-8.2)
[2017-07-20 07:12] VITALS: BP 108/67; PULSE 92; TEMP 37.6; O2SAT 91
[2017-07-20] MEDS: HEPARIN SOD 5000 UNIT/0.5 ML CARP SQ SCH ×2 (09:00→20:23)
--- NOTE | 2017-07-20 11:37 | Gastrointestinal Consultation ---
Gastrointestinal Consultation Date of Consultation: Jul 20, 2017 Attending Physician: Evelyn Consulting Physician: Leanne Reason for Consultation: RUQ pain, GB sludge History of Present Illness Patient is a 77 year old male w/ history of GERD, HH, TIA, PE who presented through the ED for evaluation of acute chest pain w/ radiation to his jaw - GI was asked to evaluate the pt as he has had intermittent RUQ pain, nausea for a few months and imaging w/ GB sludge w/ normal LFTs and normal lipase. Pt was seen and evaluated, chart reviewed. Family at bedside who aided in history. Pt notes over the past few months, he has had intermittent right sided discomfort, worse w/ fatty foods, diary products. He has made some dietary changes w/ mild improvement, but symptoms still persists. Pain can radiate to his back when present w/ nausea, no vomiting. Notes yesterday after eating developed a different pain - chest pain, located in the epigastric region w/ radiation to right neck and jaw. There was associated SOB. No nausea. No vomiting. No RUQ pain. No diaphoresis. He notes he continues to have this pain, but it is less severe and more of an ache. Moves his bowels daily, formed. No black or bloody stools. No fever, chills, weight loss. HIDA: pending ABD US: Suspected sludge within the gallbladder. No shadowing gallstones. Suspected tiny gallbladder polyp. No evidence for acute cholecystitis. No biliary ductal dilatation. Study compromised by suboptimal penetration. Largely obscured pancreas. Numerous bilateral renal cysts, several of which contain thin septations Chest CTA: Very limited study secondary to extensive respiratory motion. No central pulmonary embolus identified. Mild subsegmental bibasilar atelectasis without focal airspace consolidation to suggest pneumonia. Cardiomegaly with fusiform aneurysmal dilation of the ascending thoracic aorta beginning distal to the sinotubular junction, 4.7 x 4.7 cm slightly increased in size from comparison. Moderate hiatal hernia. Chest XR: Cardiomegaly without overt pulmonary edema. Linear subsegmental bibasilar opacities suggest atelectasis. Hiatal hernia. Past Medical/Surgical History Medical Problems: (1) Hiatal hernia Status: Acute (2) Substernal precordial chest pain Status: Acute Past Medical History: HTN, seizure, sleep apnea, PE, TIA, GERD, HH Past Surgical History: EGD, colon Family History Diabetes mellitus Heart disease Hypertension Lung disease Seizures Social History Smoking Status: Never Smoker Drug Use: none Marital Status: Housing Status: lives with family Occupation Status: retired Allergies Coded Allergies: No Known Allergies (Unverified , 02/19/15) spouse Current Medications Home Meds and Scripts Medications Dose Route/Sig Max Daily Dose Days Date Category Dose Instructions Aspirin Ec (Aspirin) 81 Mg Tab 81 Mg PO DAILY 07/19/17 Reported [place] 10MG/325MG (Acetaminophen/Hydrocodone Bitart) Tab 1 Tab PO Q4H PRN 07/19/17 Reported PRN PAIN Lasix (Furosemide) 40 Mg Tab 40 Mg PO DIRECTED 07/19/17 Reported TAKES ONLY A FEW DAYS A WEEK PER SPOUSE Doxazosin Mesylate 4 Mg Tab 8 Mg PO DAILY 07/19/17 Reported Prilosec (Omeprazole) 40 Mg Cap 40 Mg PO DAILY 07/19/17 Reported Prednisone 10 Mg Tab 10 Mg PO QAM 01/07/14 Reported Imitrex (Sumatriptan Succinate) 50 Mg Tab 50 Mg PO PRN 01/07/14 Reported HAS NOT TAKEN LATELY Dilantin (Phenytoin Sodium) 100 Mg Cap 300 Mg PO QAM 01/07/14 Reported Nitrostat (Nitroglycerin) 0.4 Mg Sub 0.4 Mg UT PRN 08/13/12 Reported PT DOES NOT HAVE CURRENT Calan Sr Ext Rel (Verapamil HCl) 240 Mg Tabcr 240 Mg PO DAILY 08/13/12 Reported Lotensin Hct 20MG/25MG (Benazepril & Hydrochlorothiazi) 1 Tab Tab 1 Tab PO DAILY 08/13/12 Reported Review of Systems Constitutional: No fever, No chills, No weight loss Respiratory: + shortness of breath, No cough Cardiac: + chest pain, No edema Abdomen: + pain, + nausea, No vomiting, No diarrhea, No constipation, No GI bleeding Physical Exam Date Time Temp Pulse Resp B/P (MAP) Pulse Ox O2 Delivery O2 Flow Rate FiO2 07/20/17 08:00 Nasal Cannula 2.0 07/20/17 07:12 37.6 92 22 108/67 (81) 91 Nasal Cannula 2.0 07/20/17 05:30 36.3 86 20 114/69 (84) 91 Nasal Cannula 2.0 07/20/17 04:00 Nasal Cannula 2.0 07/20/17 01:29 36.9 75 20 122/75 (91) 92 Room Air 2.0 07/19/17 23:27 37.0 77 22 131/71 93 Nasal Cannula 2.0 07/19/17 23:11 80 20 99/74 95 Nasal Cannula 2.0 07/19/17 21:39 94 Nasal Cannula 3.0 07/19/17 21:21 76 22 118/76 93 Room Air 07/19/17 19:29 70 20 132/82 92 Room Air 07/19/17 17:57 72 07/19/17 17:56 94 Room Air 07/19/17 17:56 94 Room Air 07/19/17 17:30 36.6 77 22 141/82 93 Room Air General Appearance: no apparent distress Eyes: PERRL ENT: hearing grossly normal Neck: supple Respiratory/Chest: lungs clear, normal breath sounds Cardiovascular: regular rate, rhythm, no JVD Abdomen: normal bowel sounds, soft, no organomegaly, + tenderness (epigastric, RUQ) Neurologic/Psych: alert, normal mood/affect, oriented x 3 Skin: normal color Laboratory Results Last 24 Hours Test 07/19/17 17:45 07/20/17 00:33 07/20/17 01:17 07/20/17 05:55 White Blood Count 10.63 K/uL 10.67 K/uL Red Blood Count 4.49 M/uL 4.44 M/uL Hemoglobin 15.1 g/dL 14.4 g/dL Hematocrit 43.1 % 43.1 % Mean Corpuscular Volume 96.0 fL 97.1 fL Mean Corpuscular Hemoglobin 33.6 pg 32.4 pg Mean Corpuscular Hemoglobin Concent 35.0 g/dl 33.4 g/dl Platelet Count 202 K/uL 198 K/uL Mean Platelet Volume 11.0 fL 11.2 fL Neutrophils (%) (Auto) 74.1 % 71.7 % Lymphocytes (%) (Auto) 12.5 % 11.7 % Monocytes (%) (Auto) 10.3 % 12.9 % Eosinophils (%) (Auto) 2.7 % 3.3 % Basophils (%) (Auto) 0.3 % 0.2 % Neutrophils # (Auto) 7.88 K/uL 7.65 K/uL Lymphocytes # (Auto) 1.33 K/uL 1.25 K/uL Monocytes # (Auto) 1.09 K/uL 1.38 K/uL Eosinophils # (Auto) 0.29 K/uL 0.35 K/uL Basophils # (Auto) 0.03 K/uL 0.02 K/uL RDW Standard Deviation 46.6 fL 47.1 fL RDW Coefficient of Variation 13.3 % 13.4 % Immature Granulocyte % (Auto) 0.1 % 0.2 % Immature Granulocyte # (Auto) 0.01 K/uL 0.02 K/uL Prothrombin Time 10.7 SECONDS Prothromb Time International Ratio 1.0 Activated Partial Thromboplast Time 25.0 SECONDS Partial Thromboplastin Ratio 1.0 D-Dimer 500 ug/L FEU Sodium Level 141 mmol/L 140 mmol/L Potassium Level 3.4 mmol/L 3.6 mmol/L Chloride Level 102 mmol/L 102 mmol/L Carbon Dioxide Level 30 mmol/L 35 mmol/L Anion Gap 9.0 mmol/L 3.0 mmol/L Blood Urea Nitrogen 18 mg/dl 18 mg/dl Creatinine 0.88 mg/dl 0.74 mg/dl Est Creatinine Clear Calc Drug Dose 77.0 ml/min 93.9 ml/min Estimated GFR () 96.0 103.1 Estimated GFR (Non- 82.9 89.0 BUN/Creatinine Ratio 20.0 23.7 Random Glucose 140 mg/dl 103 mg/dl Calcium Level 8.4 mg/dl 8.7 mg/dl Total Bilirubin 0.3 mg/dl 0.5 mg/dl Direct Bilirubin < 0.1 mg/dl Aspartate Amino Transf (AST/SGOT) 16 U/L 12 U/L Alanine Aminotransferase (ALT/SGPT) 27 U/L 22 U/L Alkaline Phosphatase 83 U/L 88 U/L Total Creatine Kinase 52 U/L Creatine Kinase MB 0.8 ng/ml Creatine Kinase MB Ratio 1.5 Troponin I < 0.015 ng/ml < 0.015 ng/ml Total Protein 6.7 gm/dl 6.4 gm/dl Albumin 3.5 gm/dl 3.3 gm/dl Lipase 56 U/L Phenytoin (Dilantin) Level 17.0 mcg/mL Urine Color YELLOW Urine Appearance CLEAR Urine pH 6.5 Urine Specific [place] 1.045 Urine Protein NEG Urine Glucose (UA) NEG Urine Ketones NEG Urine Occult Blood NEG Urine Nitrite NEG Urine Bilirubin NEG Urine Urobilinogen NEG Urine Leukocyte Esterase NEG Globulin 3.1 gm/dl Albumin/Globulin Ratio 1.1 Test 07/20/17 10:00 Troponin I < 0.015 ng/ml Impression Patient is a 77 year old male w/ history of TIA, PE who presented through the ED for acute CP, epigastric w/ radiation to right neck and jaw associated w/ SOB - GI was asked to evaluate the pt as he has intermittent RUQ pain, nausea, GERD and intolerability to fatty foods. ABD US reviewed, no biliary dilation but concern for GB sludge. HIDA was ordered by primary team and pending. Cardiology work up is pending. GERD vs PUD vs Biliary dyskinesia vs functional pain vs other Plan - Rule out cardiac course of symptoms - PPI daily - Carafate suspension - Follow up HIDA - Daily LFTs, lipase - EGD/EUS timing to be determined, perhaps would be better suited as OP as there is no evidence of obstruction on labs or imaging - Consult general surgery - GI to follow, please call with any questions, concerns or acute changes I saw and evaluated the patient. I agree with the plan as stated by . The patient presents with a history of recurrent chest pain radiating towards his right neck. He denies having nausea vomiting fever chills or relation to food intake. He does believe he has a history of an upper endoscopy performed several years ago and was given a diagnosis of Bautista 's esophagus. Physical examination No obvious distress No abdominal tenderness Impression: Patient with recurrent chest discomfort. Based on his history I would favor a cardiac etiology. If cleared by cardiology we are happy to proceed with upper endoscopy to further evaluate for evidence of peptic ulcer disease. Recommendation Continue with PPI Await cardiology input Upper endoscopy if cleared by cardiology on Thursday or Thursday.
[2017-07-20 12:07] VITALS: BP 121/67; PULSE 87; TEMP 37.3; O2SAT 90
[2017-07-20] MEDS ORDERED: SINCALIDE INJ 2 MCG in SODIUM CHLORIDE 0.9% 100ML 100 ML IV ONE (14:00)
--- NOTE | 2017-07-20 14:14 | Hospitalist Progress Note ---
Hospitalist Progress Note Date of Service Jul 20, 2017. (Tori Rivas ., PA-C) Subjective Pt evaluation today including: conversation w/ patient, conversation w/ family ( and son at bedside ), physical exam, lab review, review of studies, review of inpatient medication list Voiding: no voiding problems Patient resting in bed. NPO. Pain is not improved since admission. R-sided chest region, radiates to R shoulder and R neck. notes patient is forgetful at times. Currently at baseline. Notes has had RUQ pain for sometime now. Increases w/ eating and patient avoids eating due to this. Patient denies any fever, chills, sweats, lightheadedness, dizziness, vision changes, palpitations, edema, SOB, wheezing, cough, nausea, vomiting, diarrhea, urinary symptoms, melena, numbness/tingling, weakness, muscle/joint pain, anxiety/depression, active bleeding, or new skin discoloration/changes. (Tori Rivas ., PA-C) Medications Current Inpatient Medications Medications (Trade) Dose Ordered Sig/Mike Route Start Time Stop Time Status Last Admin Dose Admin Ioversol (Optiray 320) 100 ml UD PRN IV 07/19/17 19:30 07/23/17 19:29 Acetaminophen (Tylenol Tab) 650 mg Q4H PRN PO 07/19/17 22:45 08/18/17 22:44 Al Hydrox/Mg Hydrox/Simethicone (Maalox Max Susp) 15 ml Q4H PRN PO 07/19/17 22:45 08/18/17 22:44 Magnesium Hydroxide (Milk Of Magnesia Susp) 30 ml Q12H PRN PO 07/19/17 22:45 08/18/17 22:44 Ondansetron HCl (Zofran Inj) 4 mg Q6H PRN IV 07/19/17 22:45 08/18/17 22:44 Nitroglycerin (Nitrostat Tab) 0.4 mg UD PRN SL 07/19/17 22:45 08/18/17 22:44 Polyethylene (Miralax Powder Packet) 17 gm DAILY PRN PO 07/19/17 22:45 08/18/17 22:44 Aspirin (Ecotrin Tab) 81 mg DAILY PO 07/20/17 09:00 08/19/17 08:59 Doxazosin Mesylate (Cardura Tab) 8 mg DAILY PO 07/20/17 09:00 08/19/17 08:59 Acetaminophen/ Hydrocodone Bitart ([place] 10/325 Tab) 1 tab Q4H PRN PO 07/19/17 22:45 08/02/17 22:44 Phenytoin Sodium (Dilantin Er Cap) 300 mg QAM PO 07/20/17 09:00 08/19/17 08:59 Prednisone (PredniSONE TAB) 10 mg QAM PO 07/20/17 09:00 08/19/17 08:59 Verapamil HCl (Calan-Sr Tab) 240 mg DAILY PO 07/20/17 09:00 08/19/17 08:59 Benazepril HCl (Lotensin Tab) 20 mg DAILY PO 07/20/17 09:00 08/19/17 08:59 Pantoprazole Sodium (Protonix Tab) 40 mg QAM PO 07/20/17 09:00 08/19/17 08:59 Hydrochlorothiazide (Hydrochlorothiazide Tab) 25 mg DAILY PO 07/20/17 09:00 08/19/17 08:59 Heparin Sodium (Porcine) (Heparin Sq 5000 Unit/0.5ml) 5,000 unit Q12 SQ 07/20/17 09:00 08/19/17 08:59 Miscellaneous (Iv Fluids Completed) 1 ea PRN PRN N/A 07/20/17 03:00 07/20/18 02:59 Sincalide 2 mcg/ Sodium Chloride 102 ml @ 200 mls/hr TODAY@1400 ONCE IV 07/20/17 14:00 07/20/17 14:30 (Tori Rivas, LIVE) Objective Vital Signs Date Time Temp Pulse Resp B/P (MAP) Pulse Ox O2 Delivery O2 Flow Rate FiO2 07/20/17 12:07 37.3 87 22 121/67 (85) 90 Nasal Cannula 2.0 07/20/17 12:00 Nasal Cannula 2.0 07/20/17 08:00 Nasal Cannula 2.0 07/20/17 07:12 37.6 92 22 108/67 (81) 91 Nasal Cannula 2.0 07/20/17 05:30 36.3 86 20 114/69 (84) 91 Nasal Cannula 2.0 07/20/17 04:00 Nasal Cannula 2.0 07/20/17 01:29 36.9 75 20 122/75 (91) 92 Room Air 2.0 07/19/17 23:27 37.0 77 22 131/71 93 Nasal Cannula 2.0 07/19/17 23:11 80 20 99/74 95 Nasal Cannula 2.0 07/19/17 21:39 94 Nasal Cannula 3.0 07/19/17 21:21 76 22 118/76 93 Room Air 07/19/17 19:29 70 20 132/82 92 Room Air 07/19/17 17:57 72 07/19/17 17:56 94 Room Air 07/19/17 17:56 94 Room Air 07/19/17 17:30 36.6 77 22 141/82 93 Room Air (Tori Rivas, MARIMAR-C) Physical Exam General Appearance: no apparent distress Eyes: normal inspection, PERRL ENT: hearing grossly normal Neck: supple Respiratory/Chest: lungs clear, no respiratory distress, no accessory muscle use Cardiovascular: regular rate, rhythm Abdomen: normal bowel sounds, soft, + tenderness (epigastric/ RUQ region) Extremities: no pedal edema, no calf tenderness Neurologic/Psychiatric: alert, normal mood/affect, oriented x 3 Skin: normal color, warm/dry, no rash (Tori Rivas, PA-C) Laboratory Results Last 24 Hours Test 07/19/17 17:45 07/20/17 00:33 07/20/17 01:17 07/20/17 05:55 White Blood Count 10.63 K/uL 10.67 K/uL Red Blood Count 4.49 M/uL 4.44 M/uL Hemoglobin 15.1 g/dL 14.4 g/dL Hematocrit 43.1 % 43.1 % Mean Corpuscular Volume 96.0 fL 97.1 fL Mean Corpuscular Hemoglobin 33.6 pg 32.4 pg Mean Corpuscular Hemoglobin Concent 35.0 g/dl 33.4 g/dl Platelet Count 202 K/uL 198 K/uL Mean Platelet Volume 11.0 fL 11.2 fL Neutrophils (%) (Auto) 74.1 % 71.7 % Lymphocytes (%) (Auto) 12.5 % 11.7 % Monocytes (%) (Auto) 10.3 % 12.9 % Eosinophils (%) (Auto) 2.7 % 3.3 % Basophils (%) (Auto) 0.3 % 0.2 % Neutrophils # (Auto) 7.88 K/uL 7.65 K/uL Lymphocytes # (Auto) 1.33 K/uL 1.25 K/uL Monocytes # (Auto) 1.09 K/uL 1.38 K/uL Eosinophils # (Auto) 0.29 K/uL 0.35 K/uL Basophils # (Auto) 0.03 K/uL 0.02 K/uL RDW Standard Deviation 46.6 fL 47.1 fL RDW Coefficient of Variation 13.3 % 13.4 % Immature Granulocyte % (Auto) 0.1 % 0.2 % Immature Granulocyte # (Auto) 0.01 K/uL 0.02 K/uL Prothrombin Time 10.7 SECONDS Prothromb Time International Ratio 1.0 Activated Partial Thromboplast Time 25.0 SECONDS Partial Thromboplastin Ratio 1.0 D-Dimer 500 ug/L FEU Sodium Level 141 mmol/L 140 mmol/L Potassium Level 3.4 mmol/L 3.6 mmol/L Chloride Level 102 mmol/L 102 mmol/L Carbon Dioxide Level 30 mmol/L 35 mmol/L Anion Gap 9.0 mmol/L 3.0 mmol/L Blood Urea Nitrogen 18 mg/dl 18 mg/dl Creatinine 0.88 mg/dl 0.74 mg/dl Est Creatinine Clear Calc Drug Dose 77.0 ml/min 93.9 ml/min Estimated GFR () 96.0 103.1 Estimated GFR (Non- 82.9 89.0 BUN/Creatinine Ratio 20.0 23.7 Random Glucose 140 mg/dl 103 mg/dl Calcium Level 8.4 mg/dl 8.7 mg/dl Total Bilirubin 0.3 mg/dl 0.5 mg/dl Direct Bilirubin < 0.1 mg/dl Aspartate Amino Transf (AST/SGOT) 16 U/L 12 U/L Alanine Aminotransferase (ALT/SGPT) 27 U/L 22 U/L Alkaline Phosphatase 83 U/L 88 U/L Total Creatine Kinase 52 U/L Creatine Kinase MB 0.8 ng/ml Creatine Kinase MB Ratio 1.5 Troponin I < 0.015 ng/ml < 0.015 ng/ml Total Protein 6.7 gm/dl 6.4 gm/dl Albumin 3.5 gm/dl 3.3 gm/dl Lipase 56 U/L Phenytoin (Dilantin) Level 17.0 mcg/mL Urine Color YELLOW Urine Appearance CLEAR Urine pH 6.5 Urine Specific [place] 1.045 Urine Protein NEG Urine Glucose (UA) NEG Urine Ketones NEG Urine Occult Blood NEG Urine Nitrite NEG Urine Bilirubin NEG Urine Urobilinogen NEG Urine Leukocyte Esterase NEG Globulin 3.1 gm/dl Albumin/Globulin Ratio 1.1 Test 07/20/17 10:00 Troponin I < 0.015 ng/ml (Tori Rivas PAEstherC) Assessment and Plan This is a 77 yo m with a history of PE/ TIA here for chest pain evaluation; Heart score is 3 R-sided chest pain, ?secondary to cardiac source vs GI source: - Admitted to tele for cardiac monitoring- no acute events - Trended cardiac enzymes- negative - No ischemic change on EKG - CTA negative for PE - ECHO pending - RUQ US w/ gallbladder sludge; HIDA scan pending - [place] and Tylenol PRN for pain management - Will make NPO after midnight incase further workup needed - Cardiology consulted, appreciate recommendations- does not think cardiac source, no stress test at this time - GI consulted, appreciate recommendations- inpatient vs outpatient workup depending on imaging, follow LFTs/lipase Hypokalemia- RESOLVED: Treated w/ PO KCL supplement, continue to follow PRP and replace PRN Severe BPH: - UA negative - Continue Doxazosin 8 mg daily - Straight cath PRN Seizure disorder: Continue Dilantin 300 mg QAM HTN: Continue Verapamil 240 mg daily, Benazepril 20 mg, HCTZ 25 mg daily PMR: Continue Prednisone 10 mg daily Mild cognitive impairment- noted GERD, hiatal hernia, GI prophylaxis: Protonix while inpatient DVT prophylaxis: Heparin SQ BID- will hold after tonight's dose incase GI procedure warranted Code Status: LEVEL I, FULL Dispo: From home, lives w/ - CM consulted (Tori Rivas PA-C) I personally interviewed and examined the patient. I agree with history of present illness and physical exam mentioned above, I also performed my own history taking and examination. Past medical history and review of system has been obtained by myself I reviewed all pertinent labs and studies Reviewed current medications I discussed and formulated of the assessment and plan mentioned above with Miss Rivas Please refer to the Summary mentioned below. General Appearance: not in acute distress Eyes: normal Sclerae, extraocular muscle intact ENT: hearing grossly normal Neck: supple Respiratory/Chest: normal air entry bilateral ,no respiratory distress, no accessory muscle use Cardiovascular: regular rate, rhythm, no murmur Abdomen: non tender, soft, no masses Extremities: no edema Neurologic/Psychiatric: Awake alert oriented times place and person moves all extremities sensation intact cranial nerves II-12 appear to be intact Skin: normal color, warm/dry, no rash 77-year-old man with history of PE/TIA and dementia presented with chest pain likely musculoskeletal Assessment Chest pain was right-sided appears to be musculoskeletal Pain also in right upper quadrant Due to his severe underlying dementia, and the nature of pain that doesn't seem cardiac Program Instructor decided to monitor closely, no intervention or stress test at this point HIDA scan was obtained and showed 100% ejection fraction Pain could be secondary to gastritis Echo is pending. Richelle Mackay MD, [facility] hospitalist group (Richelle London MD)
--- NOTE | 2017-07-20 15:52 | DIAGNOSTIC IMAGING REPORT ---
HEPATOBILIARY EF IMAGING CLINICAL HISTORY: 77 years-old Male with RUQ pain, gallbladder sludge . Acute right upper quadrant abdominal pain TECHNIQUE: Following the intravenous administration of 5.3 mCi of technetium-99m Choletec, sequential abdominal images were obtained. In order to evaluate the contractile response of the gallbladder, 2 mcg of Kinevac was administered by slow intravenous infusion over 30 min starting approximately 60 min after the administration of the radiopharmaceutical. Sequential imaging was continued for 45 min after the start of the Kinevac infusion. COMPARISON: Abdominal ultrasound 07/20/2017 FINDINGS: There is prompt, uniform accumulation of the tracer by the liver. There is normal filling of the intrahepatic ducts, common bile duct and gallbladder and normal excretion of the tracer into the duodenum. There is adequate contraction of the gallbladder. The calculated gallbladder ejection fraction is 100% (normal >40%). There is moderate enterogastric reflux. IMPRESSION: 1. Normal contractile response of the gallbladder to Kinevac infusion. 2. Moderate enterogastric biliary reflux. The above report was generated using voice recognition software. It may contain grammatical, syntax or spelling errors. Electronically signed by: Fidencio Soliz M.D. 07/20/2017 3:51 PM Dictated Date/Time: 07/20/2017 3:49 PM
--- NOTE | 2017-07-20 15:56 | ECHOCARDIOGRAM REPORT ---
*NOTICE TO RECEIVING [employer] This information is strictly Confidential and protected under [place] law. [place] law prohibits you from making any further disclosure of this information unless further disclosure is expressly permitted by the written consent of the person to whom it pertains or is authorized by law. A general authorization for the release of medical or other information is not sufficient for this purpose. Hospital accepts no responsibility if the information is made available to any other person, INCLUDING THE PATIENT. Interpretation Summary * Name: ASHLEY SEVERINO Study Date: 07/20/2017 07:39 AM BP: 108/67 mmHg * Patient Location: [facility] HR: 88 * : 1940 (M/d/yyyy) Gender: Male Height: 65 in * Age: 77 yrs Ethnicity: [place] Weight: 216 lb * Ordering Physician: Belen Campos * Referring Physician: Umer Herron * Performed By: Karla Sykes RDCS * * Reason For Study: Chest Pain * BSA: 2.0 m2 * -- Conclusions -- * 1. Normal left ventricular size and systolic function. EF 60-65%. No regional wall motion abnormalities. Mild concentric left ventricular hypertrophy. Type 2 diastolic dysfunction. * 2. Aortic valve sclerosis mild, without significant aortic valvular stenosis. * 3. Normal estimated right ventricular systolic pressure; 26mmHg. * 4. No significant change from prior study on 02/17/2014. Procedure Details * A complete two-dimensional transthoracic echocardiogram was performed (2D, M-mode, Doppler and color flow Doppler). * A contrast injection of Definity was performed to improve assessment of LV function. * Contrast was injected into an intravenous site in the right arm. * One vial of Definity ultrasound contrast was diluted in normal saline to a total volume of 10 ml. A total of '4' ml of solution was administered during imaging. * Lot # [id number] of Definity utilized for procedure. * Expiration date . * The attending nurse who injected the contrast agent was NALINI De La Paz. Left Ventricle * Normal left ventricular size and systolic function. EF 60-65%. No regional wall motion abnormalities. Mild concentric left ventricular hypertrophy. Type 2 diastolic dysfunction. Right Ventricle * The right ventricle is normal in size and function. * The right ventricular systolic function is normal as assessed by tricuspid annular plane systolic excursion (TAPSE) (normal >1.5 cm). Atria * The left atrial size is normal. * Right atrial size is normal. * There is no evidence of atrial septal defect, but resolution does not allow assessment for a patent foramen ovale. Mitral Valve * The mitral valve is grossly normal. * There is no mitral valve stenosis. * There is trace mitral regurgitation. Tricuspid Valve * The tricuspid valve is not well visualized, but is grossly normal. * There is no tricuspid stenosis. * Significant tricuspid regurgitation is absent. Aortic Valve * The aortic valve is trileaflet. * Aortic valve sclerosis mild, without significant aortic valvular stenosis. * No hemodynamically significant valvular aortic stenosis. * No aortic regurgitation is present. Pulmonic Valve * The pulmonary valve is inadequately visualized, but the Doppler data is adequate for interpretation. * There is no pulmonic valvular stenosis. * There is no significant pulmonary regurgitation. Great Vessels * The aortic root is normal size. Pericardium/Pleural * There is no pericardial effusion. Great Vessels * Normal inferior vena cava size and collapsability with sniff indicates a normal right atrial pressure of 3 mmHg MMode 2D Measurements and Calculations IVSd 1.2 cm IVSs 1.6 cm LVIDd 4.5 cm LVIDs 2.4 cm LVPWd 1.2 cm LVPWs 1.7 cm IVS/LVPW 0.97 FS 47.9 % EDV(Teich) 94.9 ml ESV(Teich) 19.5 ml EF(Teich) 79.4 % EDV(cubed) 94.2 ml ESV(cubed) 13.3 ml EF(cubed) 85.9 % % IVS thick 39.5 % % LVPW thick 45.4 % LV mass(C)d 194.1 grams LV mass(C)dI 94.9 grams/m\S\2 LV mass(C)s 143.6 grams LV mass(C)sI 70.3 grams/m\S\2 SV(Teich) 75.3 ml SI(Teich) 36.9 ml/m\S\2 SV(cubed) 80.9 ml SI(cubed) 39.6 ml/m\S\2 Ao root diam 3.2 cm Ao root area 8.2 cm\S\2 ACS 2.0 cm LA dimension 3.7 cm LA/Ao 1.2 LVAd ap4 29.6 cm\S\2 LVLd ap4 7.8 cm EDV(MOD-sp4) 89.5 ml EDV(sp4-el) 95.6 ml LVAs ap4 14.6 cm\S\2 LVLs ap4 6.2 cm ESV(MOD-sp4) 28.1 ml ESV(sp4-el) 29.1 ml EF(MOD-sp4) 68.6 % EF(sp4-el) 69.6 % LVAd ap2 26.8 cm\S\2 LVLd ap2 8.0 cm EDV(MOD-sp2) 73.8 ml EDV(sp2-el) 76.1 ml LVAs ap2 15.6 cm\S\2 LVLs ap2 7.1 cm ESV(MOD-sp2) 27.7 ml ESV(sp2-el) 29.1 ml EF(MOD-sp2) 62.4 % EF(sp2-el) 61.8 % LVLd %diff 2.6 % EDV(MOD-bp) 81.1 ml LVLs %diff 12.8 % ESV(MOD-bp) 29.0 ml EF(MOD-bp) 64.2 % SV(MOD-sp4) 61.4 ml SI(MOD-sp4) 30.0 ml/m\S\2 SV(MOD-sp2) 46.0 ml SI(MOD-sp2) 22.5 ml/m\S\2 SV(MOD-bp) 52.0 ml SI(MOD-bp) 25.5 ml/m\S\2 SV(sp4-el) 66.6 ml SI(sp4-el) 32.6 ml/m\S\2 SV(sp2-el) 47.1 ml SI(sp2-el) 23.0 ml/m\S\2 Doppler Measurements and Calculations MV E max kalpana 92.2 cm/sec MV A max kalpana 90.1 cm/sec MV E/A 1.0 MV dec time 0.25 sec Ao V2 max 155.3 cm/sec Ao max PG 9.6 mmHg Ao max PG (full) 0.20 mmHg LV V1 max PG 9.4 mmHg LV V1 max 153.7 cm/sec PA V2 max 132.0 cm/sec PA max PG 7.0 mmHg TR max kalpana 240.7 cm/sec RVSP(TR) 26.2 mmHg RAP systole 3.0 mmHg
[2017-07-20] MEDS: VERAPAMIL HCL 240 MG TABCR PO SCH (16:04)
[2017-07-20] MEDS: ASPIRIN 81 MG ECTAB PO SCH (16:05)
[2017-07-20] MEDS: DOXAZosin MESYLATE TAB 4 MG TAB PO SCH (16:05)
[2017-07-20] MEDS: HYDROCHLOROTHIAZIDE 25 MG TAB PO SCH (16:05)
[2017-07-20] MEDS: PHENYTOIN SODIUM ER 100 MG CAP PO SCH (16:05)
[2017-07-20] MEDS: PANTOprazole SOD 40 MG TAB PO SCH (16:06)
[2017-07-20] MEDS: BENAZEPRIL HCL 10 MG TAB PO SCH (16:06)
[2017-07-20] MEDS: HYDROCODONE/ACETAMI 10/325 TAB PO PRN (16:14)
[2017-07-20] MEDS: SUCRALFATE 1 GM/10 ML UDC PO SCH ×2 (16:48→20:22)
[2017-07-20 18:06] VITALS: BP 99/65; PULSE 98; TEMP 36.9; O2SAT 91
[2017-07-20 19:08] VITALS: BP 117/66; PULSE 92; TEMP 36.7; O2SAT 90
[2017-07-21] VITALS (9 sets, daily range): BP systolic 98–126; BP diastolic 56–74; PULSE 77–99; TEMP 36.9–38.2; O2SAT 91–95
[2017-07-21] MEDS ORDERED: PIPERACILL/TAZOBAC IV 3.375 GM in DEXTROSE 5% 100ML 100 ML IV ONE (01:05)
[2017-07-21] MEDS ORDERED: PIPERACILL/TAZOBAC CONSULT ACTIVE PRN ×2 (01:15)
[2017-07-21 02:31] LABS: INFLUENZA B ANTIGEN Neg for Influ B (NEG)
[2017-07-21 03:32] LABS: INFLUENZA A PCR Neg for Influ A (NEG); INFLUENZA B PCR Neg for Influ B (NEG)
[2017-07-21] MEDS: PIPERACILL/TAZOBAC IV 3.375 GM in DEXTROSE 5% 100ML 100 ML IV SCH ×3 (05:41→20:57)
[2017-07-21 07:01] LABS: ALBUMIN 3.2 gm/dl (3.4-5.0); CALCIUM 8.8 mg/dl (8.5-10.1); CREATININE 0.7 mg/dl (0.60-1.40); POTASSIUM 3.3 mmol/L (3.5-5.1)
[2017-07-21 07:04] LABS: TOTAL PROTEIN 6.3 gm/dl (6.4-8.2)
--- NOTE | 2017-07-21 07:41 | Progress Note ---
Progress Note Date of Service Jul 21, 2017. Progress Note febrile overnight - Zosyn empirically started for potential Gi source with known biliary sludge - influenza , blood cx and repeat UA
[2017-07-21] MEDS: SUCRALFATE 1 GM/10 ML UDC PO SCH ×4 (09:00→20:56)
[2017-07-21] MEDS: NSS + 20MEQ KCL 1000ML 1,000 ML IV SCH ×2 (09:22→19:40)
--- NOTE | 2017-07-21 09:37 | Progress Note ---
Progress Note Date of Service Jul 21, 2017. (Brandy Pope ., OUMAR) Progress Note Pt seen and evaluated, chart reviewed. No acute events overnight. Continued to have epigastric and RUQ pain. Notes mild resolution of CP but does continue to have pain into his jaw and neck. Denies SOB. Is passing gas. No fever, chills. HIDA: enterogastric reflux ABD US: Suspected sludge within the gallbladder. No shadowing gallstones. Suspected tiny gallbladder polyp. No evidence for acute cholecystitis. No biliary ductal dilatation. Study compromised by suboptimal penetration. Largely obscured pancreas. Numerous bilateral renal cysts, several of which contain thin septations Chest CTA: Very limited study secondary to extensive respiratory motion. No central pulmonary embolus identified. Mild subsegmental bibasilar atelectasis without focal airspace consolidation to suggest pneumonia. Cardiomegaly with fusiform aneurysmal dilation of the ascending thoracic aorta beginning distal to the sinotubular junction, 4.7 x 4.7 cm slightly increased in size from comparison. Moderate hiatal hernia. Chest XR: Cardiomegaly without overt pulmonary edema. Linear subsegmental bibasilar opacities suggest atelectasis. Hiatal hernia. No acute distress. Lungs clear. Heart regular. Abd soft, non-distended w/ tenderness in epigastric and RUQ. NPO for EGD (Brandy Pope ., OUMAR) I saw and evaluated the patient. Please see my of the note for details. (Raegan Acuña, DO)
--- NOTE | 2017-07-21 10:32 | History & Physical Bridge Note ---
H&P Re-Evaluation Bridge Note: I have examined the patient, reviewed the History & Physical and in the interval since the performance of the History & Physical I have noted the following changes of clinical significance: No changes noted. We have discussed the risks of upper endoscopy to include bleeding, infection, Aspiration, perforation and pain.
--- NOTE | 2017-07-21 10:57 | GI REPORT ---
Procedure Date: 07/21/2017 10:30 AM Procedure: Upper GI endoscopy Indications: Epigastric abdominal pain, Unexplained chest pain Medicines: Monitored Anesthesia Care Complications: No immediate complications. Estimated blood loss: Minimal. Estimated Blood Loss: Estimated blood loss was minimal. Procedure: Pre-Anesthesia Assessment: - Prior to the procedure, a History and Physical was performed, and patient medications, allergies and sensitivities were reviewed. The patient's tolerance of previous anesthesia was reviewed. - The risks and benefits of the procedure and the sedation options and risks were discussed with the patient. All questions were answered and informed consent was obtained. - Patient identification and proposed procedure were verified prior to the procedure by the physician, the nurse and the binding end stitcher. The procedure was verified in the procedure room. - Pre-procedure physical examination revealed no contraindications to sedation. - ASA Grade Assessment: III - A patient with severe systemic disease. - After reviewing the risks and benefits, the patient was deemed in satisfactory condition to undergo the procedure. - The anesthesia plan was to use monitored anesthesia care (MAC). - Immediately prior to administration of medications, the patient was re-assessed for adequacy to receive sedatives. - The heart rate, respiratory rate, oxygen saturations, blood pressure, adequacy of pulmonary ventilation, and response to care were monitored throughout the procedure. - The physical status of the patient was re-assessed after the procedure. After obtaining informed consent, the endoscope was passed under direct vision. Throughout the procedure, the patient's blood pressure, pulse, and oxygen saturations were monitored continuously. The On-site loaner was introduced through the mouth, and advanced to the third part of duodenum. The upper GI endoscopy was accomplished without difficulty. The patient tolerated the procedure well. Findings: The examined esophagus was moderately tortuous. A large hiatal hernia was found. The proximal extent of the gastric folds (end of tubular esophagus) was 32 cm from the incisors. The hiatal narrowing was 40 cm from the incisors. The Z-line was 32 cm from the incisors. Diffuse moderate inflammation characterized by congestion (edema), erythema and granularity was found in the entire examined stomach. Biopsies were taken with a cold forceps for histology. Estimated blood loss was minimal. The examined duodenum was normal. Impression: - Tortuous esophagus. - Large hiatal hernia. - Gastritis. Biopsied. - Normal examined duodenum. Recommendation: - Return patient to [facility] for ongoing care. - Use Protonix (pantoprazole) 40 mg PO daily for 3 months. - Use sucralfate tablets 1 gram PO BID for 6 weeks. - Do an upper GI series at appointment to be scheduled (evaluation for a paraesophageal hernia). Raegan Acuña D.O. Raegan Acuña, 07/21/2017 10:56:26 AM This report has been signed electronically. Note Initiated On: 07/21/2017 10:30 AM I attest to the content of the Intraoperative Record and orders documented therein, exceptions below
--- NOTE | 2017-07-21 10:57 | Progress Note ---
Progress Note Date of Service Jul 21, 2017. Progress Note EGD performed today. Findings 8-10 cm hiatal hernia Diffuse gastritis Recommendations Protonix 40 mg 1 time daily Carafate twice daily Upper GI series to evaluate for evidence of a paraesophageal hernia After upper GI series consider advancing diet as tolerated If found to have a paraesophageal hernia would obtain thoracic surgery consultation, or consider referral to a tertiary center
--- NOTE | 2017-07-21 11:53 | Anesthesiology Progress Note ---
Anesthesia Post Op Note Date & Time Jul 21, 2017 at 11:53 Vital Signs Pain Intensity: 0 Vital Signs Past 12 Hours Date Time Temp Pulse Resp B/P (MAP) Pulse Ox O2 Delivery O2 Flow Rate FiO2 07/21/17 11:25 74 20 127/93 (104) 93 Room Air 07/21/17 11:10 72 20 116/62 (80) 95 Room Air 07/21/17 10:55 78 20 114/70 (85) 93 Room Air 07/21/17 10:33 37.5 78 20 110/69 (83) 93 Nasal Cannula 2 07/21/17 08:00 Nasal Cannula 2.0 07/21/17 07:21 37.3 77 20 108/63 (78) 91 Nasal Cannula 2.0 07/21/17 05:01 37.2 84 18 109/70 (83) 94 2.0 07/21/17 04:00 Nasal Cannula 2.0 07/21/17 00:55 37.6 07/21/17 00:17 38.2 81 20 112/62 (79) 93 2.0 07/21/17 00:00 Nasal Cannula 2.0 Notes Mental Status: alert / awake / arousable, participated in evaluation Pt Amnestic to Procedure: Yes Nausea / Vomiting: adequately controlled Pain: adequately controlled Airway Patency, RR, SpO2: stable & adequate BP & HR: stable & adequate Hydration State: stable & adequate Anesthetic Complications: no major complications apparent
--- NOTE | 2017-07-21 12:09 | DIAGNOSTIC IMAGING REPORT ---
DOUBLE CONTRAST UPPER GI SERIES CLINICAL HISTORY: Hiatal hernia. Status post endoscopy. COMPARISON STUDY: Abdominal CT dated 08/13/2012. TECHNIQUE: A standard air contrast upper GI series was performed. Spot images of the esophagus and stomach were obtained in multiple obliquities both upright and prone. FINDINGS: The patient swallowed barium without difficulty. The esophagus is structurally normal without evidence of intrinsic or extrinsic mass. Moderate dysmotility is seen throughout the esophagus. The esophageal mucosal pattern is normal. No gastroesophageal reflux was elicited by having the patient perform the Valsalva maneuver. The gastroesophageal junction distends normally. There is a moderate to large sliding-type hiatal hernia. The gastroesophageal junction is located above the diaphragm. The stomach otherwise distends normally. The duodenum is normal in configuration. No mass or ulceration is identified. There was no evidence of gastritis. The duodenal bulb and sweep are unremarkable. Fluoroscopy time: 2.4 minutes. Fluoroscopic images: 18 IMPRESSION: 1. Esophageal dysmotility. 2. Moderate to large sliding-type hiatal hernia. Electronically signed by: Malik Pavon M.D. 07/21/2017 12:07 PM Dictated Date/Time: 07/21/2017 12:05 PM
--- NOTE | 2017-07-21 13:21 | Hospitalist Progress Note ---
Hospitalist Progress Note Date of Service Jul 21, 2017. (Tori Rivas ., PA-C) Subjective Pt evaluation today including: conversation w/ patient, conversation w/ family ( and son at bedside ), physical exam, lab review, review of studies, review of inpatient medication list Voiding: no voiding problems Patient resting in bed. RUQ/epigastric, and R chest region pain has not improved. NPO for EGD this AM. Did spike a fever last night. IV Zosyn started. Patient denies any fever, chills, sweats, lightheadedness, dizziness, vision changes, palpitations, edema, SOB, wheezing, cough, nausea, vomiting, diarrhea, urinary symptoms, melena, numbness/tingling, weakness, muscle/joint pain, anxiety/depression, active bleeding, or new skin discoloration/changes. (Tori Rivas ., PA-C) Medications Current Inpatient Medications Medications (Trade) Dose Ordered Sig/Mike Route Start Time Stop Time Status Last Admin Dose Admin Ioversol (Optiray 320) 100 ml UD PRN IV 07/19/17 19:30 07/23/17 19:29 Acetaminophen (Tylenol Tab) 650 mg Q4H PRN PO 07/19/17 22:45 08/18/17 22:44 Al Hydrox/Mg Hydrox/Simethicone (Maalox Max Susp) 15 ml Q4H PRN PO 07/19/17 22:45 08/18/17 22:44 Magnesium Hydroxide (Milk Of Magnesia Susp) 30 ml Q12H PRN PO 07/19/17 22:45 08/18/17 22:44 Ondansetron HCl (Zofran Inj) 4 mg Q6H PRN IV 07/19/17 22:45 08/18/17 22:44 Nitroglycerin (Nitrostat Tab) 0.4 mg UD PRN SL 07/19/17 22:45 08/18/17 22:44 Polyethylene (Miralax Powder Packet) 17 gm DAILY PRN PO 07/19/17 22:45 08/18/17 22:44 Aspirin (Ecotrin Tab) 81 mg DAILY PO 07/20/17 09:00 08/19/17 08:59 07/20/17 16:05 81 MG Doxazosin Mesylate (Cardura Tab) 8 mg DAILY PO 07/20/17 09:00 08/19/17 08:59 07/20/17 16:05 8 MG Acetaminophen/ Hydrocodone Bitart ([place] 10/325 Tab) 1 tab Q4H PRN PO 07/19/17 22:45 08/02/17 22:44 07/20/17 16:14 1 TAB Phenytoin Sodium (Dilantin Er Cap) 300 mg QAM PO 07/20/17 09:00 08/19/17 08:59 07/20/17 16:05 300 MG Prednisone (PredniSONE TAB) 10 mg QAM PO 07/20/17 09:00 08/19/17 08:59 07/20/17 16:06 10 MG Verapamil HCl ([place]-Sr Tab) 240 mg DAILY PO 07/20/17 09:00 08/19/17 08:59 07/20/17 16:04 240 MG Benazepril HCl (Lotensin Tab) 20 mg DAILY PO 07/20/17 09:00 08/19/17 08:59 07/20/17 16:06 20 MG Pantoprazole Sodium (Protonix Tab) 40 mg QAM PO 07/20/17 09:00 08/19/17 08:59 07/20/17 16:06 40 MG Hydrochlorothiazide (Hydrochlorothiazide Tab) 25 mg DAILY PO 07/20/17 09:00 08/19/17 08:59 07/20/17 16:05 25 MG Heparin Sodium (Porcine) (Heparin Sq 5000 Unit/0.5ml) 5,000 unit Q12 SQ 07/20/17 09:00 08/19/17 08:59 Future Hold 07/20/17 20:23 5,000 UNIT Miscellaneous (Iv Fluids Completed) 1 ea PRN PRN N/A 07/20/17 03:00 07/20/18 02:59 Sucralfate (Carafate Susp) 1 gm QID PO 07/20/17 17:00 08/19/17 16:59 07/20/17 20:22 1 GM Piperacillin Sod/ Tazobactam Sod 3.375 gm/Dextrose 115 ml @ 28.75 mls/ hr Q8 IV 07/21/17 06:00 07/23/17 05:59 07/21/17 05:41 28.75 MLS/HR Miscellaneous Information (Consult) 1 ea UD PRN N/A 07/21/17 01:15 08/20/17 01:14 Potassium Chloride/Sodium Chloride 1,000 ml @ 100 mls/hr Q10H IV 07/21/17 09:15 08/20/17 09:14 07/21/17 09:22 100 MLS/HR (Tori Rivas, PA-C) Objective Vital Signs Date Time Temp Pulse Resp B/P (MAP) Pulse Ox O2 Delivery O2 Flow Rate FiO2 07/21/17 11:25 74 20 127/93 (104) 93 Room Air 07/21/17 11:10 72 20 116/62 (80) 95 Room Air 07/21/17 10:55 78 20 114/70 (85) 93 Room Air 07/21/17 10:33 37.5 78 20 110/69 (83) 93 Nasal Cannula 2 07/21/17 08:00 Nasal Cannula 2.0 07/21/17 07:21 37.3 77 20 108/63 (78) 91 Nasal Cannula 2.0 07/21/17 05:01 37.2 84 18 109/70 (83) 94 2.0 07/21/17 04:00 Nasal Cannula 2.0 07/21/17 00:55 37.6 07/21/17 00:17 38.2 81 20 112/62 (79) 93 2.0 07/21/17 00:00 Nasal Cannula 2.0 07/20/17 20:30 Nasal Cannula 2.0 07/20/17 19:08 36.7 92 18 117/66 (83) 90 Room Air 07/20/17 18:06 36.9 98 20 99/65 (76) 91 Nasal Cannula 2.0 07/20/17 15:20 Nasal Cannula 2.0 (Tori Rivas, PA-C) Physical Exam General Appearance: no apparent distress, + obese Eyes: normal inspection, PERRL ENT: hearing grossly normal Neck: supple Respiratory/Chest: lungs clear, no respiratory distress, no accessory muscle use Cardiovascular: regular rate, rhythm Abdomen: normal bowel sounds, soft, + tenderness (epigastric/RUQ region ) Extremities: no pedal edema, no calf tenderness Neurologic/Psychiatric: alert, normal mood/affect, oriented x 3 Skin: normal color, warm/dry, no rash (Tori Rivas ., PA-C) Laboratory Results Last 24 Hours Test 07/20/17 18:34 07/21/17 02:00 07/21/17 05:56 Troponin I < 0.015 ng/ml Influenza Type A (RT-PCR) Neg for Influ A Influenza Type A Antigen Neg for Influ A Influenza Type B Antigen Neg for Influ B Influenza Type B (RT-PCR) Neg for Influ B Sodium Level 140 mmol/L Potassium Level 3.3 mmol/L Chloride Level 104 mmol/L Carbon Dioxide Level 32 mmol/L Anion Gap 5.0 mmol/L Blood Urea Nitrogen 15 mg/dl Creatinine 0.70 mg/dl Est Creatinine Clear Calc Drug Dose 99.3 ml/min Estimated GFR () 105.5 Estimated GFR (Non- 91.0 BUN/Creatinine Ratio 20.9 Random Glucose 99 mg/dl Calcium Level 8.8 mg/dl Total Bilirubin 0.8 mg/dl Direct Bilirubin 0.2 mg/dl Aspartate Amino Transf (AST/SGOT) 14 U/L Alanine Aminotransferase (ALT/SGPT) 20 U/L Alkaline Phosphatase 74 U/L Total Protein 6.3 gm/dl Albumin 3.2 gm/dl Lipase 58 U/L (Tori Rivas, PA-C) Assessment and Plan This is a 77 yo m with a history of PE/ TIA here for chest pain evaluation; Heart score is 3 R-sided chest pain, ?secondary to cardiac source vs GI source: - Admitted to [facility] for cardiac monitoring- no acute events - Trended cardiac enzymes- negative - No ischemic change on EKG - CTA negative for PE - ECHO- preserved EF, no wall abnormalities, diastolic dysfunction, unchanged from prior study - RUQ US w/ gallbladder sludge; HIDA scan unremarkable - [place] and Tylenol PRN for pain management - Cardiology consulted, appreciate recommendations- does not think cardiac source, no stress test at this time - GI consulted, appreciate recommendations -- s/p EGD by Dr. Acuña on 07/21- Tortuous esophagus, large hiatal hernia, gastritis, biopsy pending -- Protonix 40 mg daily x3 months, Carafate 1 gm PO QID x6 weeks, upper GI series at f/u appointment to evaluate paraesophageal hernia Hypokalemia: Treat w/ PO/IV KCL supplement, continue to follow PRP and replace PRN Fever of unknown origin: - Repeat UA pending, BCx pending - No evidence of PNA on CT; repeat CXR today pending - IV Zosyn started on 07/21 Severe BPH: - UA negative - Continue Doxazosin 8 mg daily - Straight cath PRN Seizure disorder: Continue Dilantin 300 mg QAM HTN: Continue Verapamil 240 mg daily, Benazepril 20 mg, HCTZ 25 mg daily PMR: Continue Prednisone 10 mg daily Mild cognitive impairment- noted BRIANA: Non-compliant w/ CPAP per because doesn't like the mask GERD, hiatal hernia, GI prophylaxis: Protonix + Carafate DVT prophylaxis: Heparin SQ BID Code Status: LEVEL I, FULL Dispo: From home, lives w/ - CM and PT/OT consulted (Tori Rivas, LIVE) I personally interviewed and examined the patient. I agree with history of present illness and physical exam mentioned above, I also performed my own history taking and examination. Past medical history and review of system has been obtained by myself I reviewed all pertinent labs and studies Reviewed current medications I discussed and formulated of the assessment and plan mentioned above with Miss Rivas Please refer to the Summary mentioned below. General Appearance: not in acute distress Eyes: normal Sclerae, extraocular muscle intact ENT: hearing grossly normal Neck: supple Respiratory/Chest: normal air entry bilateral ,no respiratory distress, no accessory muscle use Cardiovascular: regular rate, rhythm, no murmur Abdomen: non tender, soft, no masses Extremities: no edema Neurologic/Psychiatric: Awake alert oriented times place and person moves all extremities sensation intact cranial nerves II-12 appear to be intact Skin: normal color, warm/dry, no rash 77-year-old man with history of PE/TIA and dementia presented with chest pain likely musculoskeletal Assessment Chest pain was right-sided appears to be musculoskeletal Pain also in right upper quadrant Due to his severe underlying dementia, and the nature of pain that doesn't seem cardiac Pediatric Occupational Therapist decided to monitor closely, no intervention or stress test at this point HIDA scan was obtained and showed 100% ejection fraction Pain could be secondary to gastritis, upper GI series showed esophageal dysmotility Echo normal ejection fraction, mild aortic sclerosis, no other significant finding spiked a fever yesterday status post initiation of Zosyn Blood cultures were were drawn Repeat UA Monitor for night Richelle Mackay MD, [facility] hospitalist group (Richelle London MD)
--- NOTE | 2017-07-21 14:41 | DIAGNOSTIC IMAGING REPORT ---
CHEST ONE VIEW PORTABLE HISTORY: 77 years-old Male hypoxia, fever, ?PNA acute hypoxia and fever COMPARISON: Chest radiograph 07/19/2017 TECHNIQUE: Portable AP view of the chest FINDINGS: Cardiac silhouette is moderately enlarged. Atherosclerosis of the aorta. No pneumothorax, pleural effusion, focal airspace consolidation or overt pulmonary edema. Unchanged linear subsegmental opacities of the lung bases and lateral mid lungs bilaterally. Moderate hiatal hernia. Bones of the chest appear grossly intact. Degenerative changes of the shoulders. IMPRESSION: 1. Cardiomegaly without acute process. 2. Unchanged linear subsegmental atelectasis or scarring of the lateral mid lungs. 3. Hiatal hernia. The above report was generated using voice recognition software. It may contain grammatical, syntax or spelling errors. Electronically signed by: Fidencio Soliz M.D. 07/21/2017 2:40 PM Dictated Date/Time: 07/21/2017 2:36 PM
[2017-07-21] MEDS: HYDROCODONE/ACETAMI 10/325 TAB PO PRN (15:06)
[2017-07-21] MEDS: ASPIRIN 81 MG ECTAB PO SCH (15:53)
[2017-07-21] MEDS: PHENYTOIN SODIUM ER 100 MG CAP PO SCH (15:54)
[2017-07-21] MEDS: HYDROCHLOROTHIAZIDE 25 MG TAB PO SCH (15:54)
[2017-07-21] MEDS: BENAZEPRIL HCL 10 MG TAB PO SCH (15:55)
[2017-07-21] MEDS: PANTOprazole SOD 40 MG TAB PO SCH (15:55)
[2017-07-21] MEDS: DOXAZosin MESYLATE TAB 4 MG TAB PO SCH (15:55)
[2017-07-21] MEDS: VERAPAMIL HCL 240 MG TABCR PO SCH (15:56)
[2017-07-22 04:56] VITALS: BP 116/79; PULSE 79; TEMP 36.8; O2SAT 95
[2017-07-22] MEDS: PIPERACILL/TAZOBAC IV 3.375 GM in DEXTROSE 5% 100ML 100 ML IV SCH (04:56)
[2017-07-22 05:51] LABS: HEMATOCRIT 39.7 % (42-52); HEMOGLOBIN 13.7 g/dL (14.0-18.0); MEAN CELL VOLUME 95.9 fL (80-100); MEAN CORPUSCULAR HEMOGLOBIN 33.1 pg (25-34); MEAN CORPUSCULAR HGB CONC 34.5 g/dl (32-36); PLATELET COUNT 184 K/uL (130-400); RED CELL DISTRIBUTION WIDTH SD 45.5 fL (36.4-46.3); WHITE BLOOD COUNT 7.89 K/uL (4.8-10.8)
[2017-07-22 06:28] LABS: CALCIUM 8.5 mg/dl (8.5-10.1); CREATININE 0.78 mg/dl (0.60-1.40); POTASSIUM 3.3 mmol/L (3.5-5.1)
[2017-07-22 07:06] VITALS: BP 129/80; PULSE 79; TEMP 36.6; O2SAT 95
[2017-07-22] MEDS ORDERED: LACTOBACILLUS ACIDOPHILUS 1 GM PACK PO SCH (08:00)
[2017-07-22] MEDS: SUCRALFATE 1 GM/10 ML UDC PO SCH (08:02)
[2017-07-22] MEDS: ASPIRIN 81 MG ECTAB PO SCH (08:02)
[2017-07-22] MEDS: DOXAZosin MESYLATE TAB 4 MG TAB PO SCH (08:04)
[2017-07-22] MEDS: PHENYTOIN SODIUM ER 100 MG CAP PO SCH (08:04)
[2017-07-22] MEDS: HYDROCHLOROTHIAZIDE 25 MG TAB PO SCH (08:04)
[2017-07-22] MEDS: BENAZEPRIL HCL 10 MG TAB PO SCH (08:05)
[2017-07-22] MEDS: PANTOprazole SOD 40 MG TAB PO SCH (08:05)
[2017-07-22] MEDS: HYDROCODONE/ACETAMI 10/325 TAB PO PRN (08:37)
[2017-07-22] MEDS: VERAPAMIL HCL 240 MG TABCR PO SCH (09:46)
[2017-07-22] MEDS ORDERED: CRFUDL PO (10:12)
[2017-07-22] MEDS ORDERED: PRT40 PO (10:12)
--- NOTE | 2017-07-22 10:26 | Discharge Summary ---
Discharge Summary Date of Service Jul 22, 2017. Discharge Summary Admission Date: Jul 21, 2017 at 15:07 Discharge Date: Jul 22, 2017 Discharge Disposition: Home Principal Diagnosis: Gastritis Problems/Secondary Diagnoses: R-sided chest pain, secondary to gastritis Hypokalemia Fever of unknown origin Severe BPH Seizure disorder HTN PMR Mild cognitive impairment BRIANA GERD hiatal hernia Procedures: EGD: Impression: - Tortuous esophagus. - Large hiatal hernia. - Gastritis. Biopsied. - Normal examined duodenum. Recommendation: - Use Protonix (pantoprazole) 40 mg PO daily for 3 months. - Use sucralfate tablets 1 gram PO BID for 6 weeks. ECHO: Interpretation Summary * Name: ASHLEY SEVERINO Study Date: 07/20/2017 07:39 AM BP: 108/67 mmHg * Patient Location: [facility] HR: 88 * : 1940 (M/d/yyyy) Gender: Male Height: 65 in * Age: 77 yrs Ethnicity: ID Weight: 216 lb * Ordering Physician: Belen Campos * Referring Physician: Umer Herron * Performed By: Karla Sykes RDCS * * Reason For Study: Chest Pain * BSA: 2.0 m2 * -- Conclusions -- * 1. Normal left ventricular size and systolic function. EF 60-65%. No regional wall motion abnormalities. Mild concentric left ventricular hypertrophy. Type 2 diastolic dysfunction. * 2. Aortic valve sclerosis mild, without significant aortic valvular stenosis. * 3. Normal estimated right ventricular systolic pressure; 26mmHg. * 4. No significant change from prior study on 02/17/2014. Procedure Details * A complete two-dimensional transthoracic echocardiogram was performed (2D, M-mode, Doppler and color flow Doppler). * A contrast injection of Definity was performed to improve assessment of LV function. * Contrast was injected into an intravenous site in the right arm. * One vial of Definity ultrasound contrast was diluted in normal saline to a total volume of 10 ml. A total of '4' ml of solution was administered during imaging. * Lot # [id number] of Definity utilized for procedure. * Expiration date . * The attending nurse who injected the contrast agent was NALINI De La Paz. Left Ventricle * Normal left ventricular size and systolic function. EF 60-65%. No regional wall motion abnormalities. Mild concentric left ventricular hypertrophy. Type 2 diastolic dysfunction. Right Ventricle * The right ventricle is normal in size and function. * The right ventricular systolic function is normal as assessed by tricuspid annular plane systolic excursion (TAPSE) (normal >1.5 cm). Atria * The left atrial size is normal. * Right atrial size is normal. * There is no evidence of atrial septal defect, but resolution does not allow assessment for a patent foramen ovale. Mitral Valve * The mitral valve is grossly normal. * There is no mitral valve stenosis. * There is trace mitral regurgitation. Tricuspid Valve * The tricuspid valve is not well visualized, but is grossly normal. * There is no tricuspid stenosis. * Significant tricuspid regurgitation is absent. Aortic Valve * The aortic valve is trileaflet. * Aortic valve sclerosis mild, without significant aortic valvular stenosis. * No hemodynamically significant valvular aortic stenosis. * No aortic regurgitation is present. Pulmonic Valve * The pulmonary valve is inadequately visualized, but the Doppler data is adequate for interpretation. * There is no pulmonic valvular stenosis. * There is no significant pulmonary regurgitation. Great Vessels * The aortic root is normal size. Pericardium/Pleural * There is no pericardial effusion. Great Vessels * Normal inferior vena cava size and collapsability with sniff indicates a normal right atrial pressure of 3 mmHg CHEST ONE VIEW PORTABLE HISTORY: 77 years-old Male CHEST PAIN acute atypical chest pain COMPARISON: Chest radiograph 11/08/2015 TECHNIQUE: Portable AP view of the chest FINDINGS: Cardiac silhouette is again enlarged. No pneumothorax or pleural effusion. Linear subsegmental bibasilar opacities are noted with areas of chronic interstitial coarsening. Moderate hiatal hernia. Bones of the chest appear grossly intact. IMPRESSION: 1. Cardiomegaly without overt pulmonary edema. 2. Linear subsegmental bibasilar opacities suggest atelectasis. 3. Hiatal hernia. The above report was generated using voice recognition software. It may contain grammatical, syntax or spelling errors. Electronically signed by: Fidencio Soliz M.D. 07/19/2017 6:58 PM Dictated Date/Time: 07/19/2017 6:57 PM The status of this report is Signed. Draft = Not yet reviewed or approved by Radiologist. Signed = Reviewed and approved by Radiologist. (CHEST FOR PE) ANGIO WITH CT DOSE: 609.43 mGy.cm HISTORY: 77 years-old Male presents with acute atypical chest pain TECHNIQUE: Multiple CTA images of the chest were obtained after the intravenous administration of 93 ml Optiray 320. Coronal and sagittal MIPS were obtained from the axial data set and were submitted for review. A dose lowering technique was utilized adhering to the principles of ALARA. COMPARISON: Chest radiograph of same day, CTA of the chest 02/17/2014. FINDINGS: CTA: Moderate enlargement of the heart. Coronary arterial disease. 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 No aortic dissection identified. The imaged great vessels appear to be patent. Moderate atherosclerosis of the aorta. The pulmonary arterial tree is not well opacified. The lobar, segmental and subsegmental branches are not seen secondary to extensive respiratory motion. No central pulmonary embolus identified. CT CHEST: There is an ill-defined 1.5 x 0.9 cm low attenuating nodule of the inferior left thyroid lobe. Scattered nonspecific prominent lymph nodes throughout the mediastinum without pathologically enlarged lymph nodes identified. There is no pneumothorax or pleural effusion. Mild subsegmental scarring of the left lung apex. Scattered bilateral calcified granulomas. Groundglass and linear consolidative subsegmental opacities of the lung bases suggest areas of atelectasis/scarring. No lobar airspace consolidation to suggest pneumonia. Central airways are patent. Moderate sized hiatal hernia with partially intrathoracic stomach. No acute abnormality of the imaged upper abdomen. Mild symmetric bilateral gynecomastia. Bones appear intact. Remote appearing right-sided rib fractures. IMPRESSION: 1. Very limited study secondary to extensive respiratory motion. No central pulmonary embolus identified. 2. Mild subsegmental bibasilar atelectasis without focal airspace consolidation to suggest pneumonia. 3. Cardiomegaly with fusiform aneurysmal dilation of the ascending thoracic aorta beginning distal to the sinotubular junction, 4.7 x 4.7 cm slightly increased in size from comparison. 4. Moderate hiatal hernia. The above report was generated using voice recognition software. It may contain grammatical, syntax or spelling errors. Electronically signed by: Fidencio Soliz M.D. 07/19/2017 8:12 PM Dictated Date/Time: 07/19/2017 8:03 PM The status of this report is Signed. Draft = Not yet reviewed or approved by Radiologist. Signed = Reviewed and approved by Radiologist. ABDOMEN COMPLETE (US) CLINICAL HISTORY: RUQ pain with fatty food COMPARISON STUDY: CT of the abdomen and pelvis August 13, 2012 and right upper corner ultrasound November 12, 2015. FINDINGS: Exam is mildly compromised by suboptimal penetration. No hepatic lesions are identified and there is no biliary ductal dilatation. No shadowing gallstones are noted. A small amount of sludge is noted within the gallbladder. There is a suspected tiny gallbladder polyp. No gallbladder wall thickening is noted. There was no sonographic Culver sign. Pancreas was obscured by overlying bowel gas. The right kidney measures 11.1 cm and the left measured 12.7 cm. There were numerous bilateral renal lesions. The majority of these were anechoic and reflect cysts. A few contain thin septations and likely reflect cysts as well. The largest is within the left kidney, 6.4 cm no hydronephrosis was noted. The abdominal aorta was partially obscured. Caliber of the distal abdominal aorta was normal. Size of the spleen was normal. IMPRESSION: 1. Suspected sludge within the gallbladder. No shadowing gallstones. Suspected tiny gallbladder polyp. No evidence for acute cholecystitis. 2. No biliary ductal dilatation. 3. Study compromised by suboptimal penetration. Largely obscured pancreas. 4. Numerous bilateral renal cysts, several of which contain thin septations. Electronically signed by: Mo Stallings M.D. 07/20/2017 6:52 AM Dictated Date/Time: 07/20/2017 6:47 AM The status of this report is Signed. Draft = Not yet reviewed or approved by Radiologist. Signed = Reviewed and approved by Radiologist. HEPATOBILIARY EF IMAGING CLINICAL HISTORY: 77 years-old Male with RUQ pain, gallbladder sludge . Acute right upper quadrant abdominal pain TECHNIQUE: Following the intravenous administration of 5.3 mCi of technetium-99m Choletec, sequential abdominal images were obtained. In order to evaluate the contractile response of the gallbladder, 2 mcg of Kinevac was administered by slow intravenous infusion over 30 min starting approximately 60 min after the administration of the radiopharmaceutical. Sequential imaging was continued for 45 min after the start of the Kinevac infusion. COMPARISON: Abdominal ultrasound 07/20/2017 FINDINGS: There is prompt, uniform accumulation of the tracer by the liver. There is normal filling of the intrahepatic ducts, common bile duct and gallbladder and normal excretion of the tracer into the duodenum. There is adequate contraction of the gallbladder. The calculated gallbladder ejection fraction is 100% (normal >40%). There is moderate enterogastric reflux. IMPRESSION: 1. Normal contractile response of the gallbladder to Kinevac infusion. 2. Moderate enterogastric biliary reflux. The above report was generated using voice recognition software. It may contain grammatical, syntax or spelling errors. Electronically signed by: Fidencio Soliz M.D. 07/20/2017 3:51 PM Dictated Date/Time: 07/20/2017 3:49 PM The status of this report is Signed. Draft = Not yet reviewed or approved by Radiologist. Signed = Reviewed and approved by Radiologist. DOUBLE CONTRAST UPPER GI SERIES CLINICAL HISTORY: Hiatal hernia. Status post endoscopy. COMPARISON STUDY: Abdominal CT dated 08/13/2012. TECHNIQUE: A standard air contrast upper GI series was performed. Spot images of the esophagus and stomach were obtained in multiple obliquities both upright and prone. FINDINGS: The patient swallowed barium without difficulty. The esophagus is structurally normal without evidence of intrinsic or extrinsic mass. Moderate dysmotility is seen throughout the esophagus. The esophageal mucosal pattern is normal. No gastroesophageal reflux was elicited by having the patient perform the Valsalva maneuver. The gastroesophageal junction distends normally. There is a moderate to large sliding-type hiatal hernia. The gastroesophageal junction is located above the diaphragm. The stomach otherwise distends normally. The duodenum is normal in configuration. No mass or ulceration is identified. There was no evidence of gastritis. The duodenal bulb and sweep are unremarkable. Fluoroscopy time: 2.4 minutes. Fluoroscopic images: 18 IMPRESSION: 1. Esophageal dysmotility. 2. Moderate to large sliding-type hiatal hernia. Electronically signed by: Malik Pavon M.D. 07/21/2017 12:07 PM Dictated Date/Time: 07/21/2017 12:05 PM The status of this report is Signed. Draft = Not yet reviewed or approved by Radiologist. Signed = Reviewed and approved by Radiologist. CHEST ONE VIEW PORTABLE HISTORY: 77 years-old Male hypoxia, fever, ?PNA acute hypoxia and fever COMPARISON: Chest radiograph 07/19/2017 TECHNIQUE: Portable AP view of the chest FINDINGS: Cardiac silhouette is moderately enlarged. Atherosclerosis of the aorta. No pneumothorax, pleural effusion, focal airspace consolidation or overt pulmonary edema. Unchanged linear subsegmental opacities of the lung bases and lateral mid lungs bilaterally. Moderate hiatal hernia. Bones of the chest appear grossly intact. Degenerative changes of the shoulders. IMPRESSION: 1. Cardiomegaly without acute process. 2. Unchanged linear subsegmental atelectasis or scarring of the lateral mid lungs. 3. Hiatal hernia. The above report was generated using voice recognition software. It may contain grammatical, syntax or spelling errors. Electronically signed by: Fidencio Soliz M.D. 07/21/2017 2:40 PM Dictated Date/Time: 07/21/2017 2:36 PM The status of this report is Signed. Draft = Not yet reviewed or approved by Radiologist. Signed = Reviewed and approved by Radiologist. Consultations: GI Medication Reconciliation New Medications: Pantoprazole (Pantoprazole Sodium) 40 Mg Tab 40 MG PO QAM for 90 Days, #90 TAB Sucralfate (Sucralfate) 1 Gm/10 Ml Susp 1 GM PO BID for 42 Days, #84 DOSE Continued Medications: Aspirin (Aspirin Ec) 81 Mg Tab 81 MG PO DAILY Benazepril & Hydrochlorothiazi (Lotensin Hct 20MG/25MG) 1 Tab Tab 1 TAB PO DAILY, TAB Doxazosin Mesylate (Doxazosin Mesylate) 4 Mg Tab 8 MG PO DAILY Furosemide (Lasix) 40 Mg Tab 40 MG PO DIRECTED TAKES ONLY A FEW DAYS A WEEK PER SPOUSE Hydrocodone/Acetaminophen 10MG/325MG (Galax 10MG/325MG) Tab 1 TAB PO Q4H PRN for Pain, TAB PRN PAIN Nitroglycerin (Nitrostat) 0.4 Mg Sub 0.4 MG UT PRN, BTL PT DOES NOT HAVE CURRENT Phenytoin Sodium (Dilantin) 100 Mg Cap 300 MG PO QAM, CAP Prednisone Tab (Prednisone) 10 Mg Tab 10 MG PO QAM, TAB Sumatriptan Succinate (Imitrex) 50 Mg Tab 50 MG PO PRN, TAB HAS NOT TAKEN LATELY Verapamil Sust Rel (Calan Sr Ext Rel) 240 Mg Tabcr 240 MG PO DAILY, TAB Discontinued Medications: Omeprazole (Prilosec) 40 Mg Cap 40 MG PO DAILY Referrals At Discharge Follow up Referrals: Family Practice Referral - Within 1-2 Weeks with Jyoti Recinos PA-C [facility]ist Referral - Within a Month with Raegan Acuña, Discharge Exam Review of Systems: Constitutional: No fever, No chills, No sweats, No weakness, No fatigue Eyes: No worsening of vision ENT: No hearing loss Respiratory: No cough, No shortness of breath, No hemoptysis Cardiovascular: No chest pain, No edema, No palpitations Abdomen: No pain, No nausea, No vomiting, No diarrhea, No constipation, No GI bleeding Musculoskeletal: No joint pain, No muscle pain, No swelling, No calf pain Genitourinary - Male: No hematuria, No dysuria Neurologic: No weakness, No numbness/tingling Psychiatric: No depression symptoms, No anxiety Endocrine: No fatigue Hematologic / Lymphatic: No abnormal bleeding/bruising Integumentary: No rash, No itch, No new/changing skin lesions Physical Exam: General Appearance: no apparent distress, + obese Eyes: normal inspection, PERRL ENT: hearing grossly normal Neck: supple Respiratory/Chest: lungs clear, no respiratory distress, no accessory muscle use Cardiovascular: regular rate, rhythm Abdomen / GI: normal bowel sounds, non tender, soft Extremities: no calf tenderness, no pedal edema Neurologic/Psychiatric: alert, normal mood/affect, oriented x 3 Skin: normal color, warm/dry, no rash Hospital Course Admission H&P: Source: patient, family This is a 77 yo m with a h/o PE and TIA that presents to us with substernal chest pain with radiation to the right neck. The family was apparently out for dinner and soon after dinner he experienced sharp right sided neck pain and substernal chest pain. He was SOB acutely without nausea or diaphoresis. was concerned because of his history of PE and TIA and brought him into the ED for evaluation. He states that his pain is currently a 3/10 and is now just an "ache" it is worse with any sort of deep breathing. He denies any SOB now however he is laying flat with oxygen for his severe BRIANA which he does not use a CPAP for due to intolerance. He has no history of PR, non smoker but exposure to second hand smoke as a child. Patient states he would be unable to undergo exercise stress test secondary to limited ambulation. Aside from the chest pain he has been suffering from intermittent RUQ pain whenever he eats fatty food or dairy. It was originally short lived but is now lasting for many hours and the notes he has been purposely not eating as he is afraid to trigger the pain. He has no accompanied diarrhea or constipation with it or any blood in his stool. He had an appendectomy but not cholecystectomy. He has also had worsening incontinence and straining with urination. He typically suffers from a lot of nocturia however feels still as frequent but volume is low. Has only been on Doxazosin for his BPH. Patient is at with mild cognitive impairment. Physical Exam Vital Signs Date Time Temp Pulse Resp B/P (MAP) Pulse Ox O2 Delivery O2 Flow Rate FiO2 07/19/17 21:39 94 Nasal Cannula 3.0 07/19/17 21:21 76 22 118/76 93 Room Air 07/19/17 19:29 70 20 132/82 92 Room Air 07/19/17 17:57 72 07/19/17 17:56 94 Room Air 07/19/17 17:56 94 Room Air 07/19/17 17:30 36.6 77 22 141/82 93 Room Air General Appearance: no apparent distress Head: normocephalic, atraumatic Eyes: normal inspection ENT: normal ENT inspection Neck: supple, + pertinent finding (no torticolis noted) Respiratory/Chest: normal breath sounds, no respiratory distress, no accessory muscle use, + decreased breath sounds (bilat bases) Cardiovascular: regular rate, rhythm, no murmur, normal peripheral pulses Abdomen/GI: normal bowel sounds, non tender, + distended, + pertinent finding ( positive culver sign, no CVA tendernes, rebound, obturator sign or vivian point tenderness) Back: normal inspection, no CVA tenderness, normal range of motion Extremities/Musculoskelatal: normal inspection, no calf tenderness, + pedal edema (tr bilat ) Neurologic/Psych: alert, normal mood/affect, oriented x 3, + pertinent finding (forgetful during interview, some orientation questions required coaxing ) Skin: normal color, warm/dry, no rash Hospital Course: This is a 77 yo m with a history of PE/ TIA here for chest pain evaluation; Heart score is 3 R-sided chest pain, secondary to gastritis: - Admitted to [facility] for cardiac monitoring- no acute events - Trended cardiac enzymes- negative - No ischemic change on EKG - CTA negative for PE - ECHO- preserved EF, no wall abnormalities, diastolic dysfunction, unchanged from prior study - RUQ US w/ gallbladder sludge; HIDA scan unremarkable- if continues to be symptomatic, f/u w/ PCP for referral to general surgery - Galax and Tylenol PRN for pain management - Cardiology consulted, appreciate recommendations- does not think cardiac source, no stress test at this time - GI consulted, appreciate recommendations -- s/p EGD by Dr. Acuña on 07/21- Tortuous esophagus, large hiatal hernia, gastritis, biopsy pending -- Upper GI series- esophageal dysmotility, moderate-large hiatal hernia -- Protonix 40 mg daily x3 months, Carafate 1 gm PO QID x6 weeks Hypokalemia: Treat w/ PO/IV KCL supplement, continue to follow PRP and replace PRN Fever of unknown origin: - Repeat UA- negative; BCx NGTD - No evidence of PNA on CT; repeat CXR on 07/21 w/ no signs of acute process - IV Zosyn started on 07/21- no infectious process identified, ?secondary to acute issues above- no antibiotics at discharge Severe BPH: - UA negative - Continue Doxazosin 8 mg daily - Straight cath PRN Seizure disorder: Continue Dilantin 300 mg QAM HTN: Continue Verapamil 240 mg daily, Benazepril 20 mg, HCTZ 25 mg daily PMR: Continue Prednisone 10 mg daily Mild cognitive impairment- noted BRIANA: Non-compliant w/ CPAP per because doesn't like the mask- encouraged/ educated use/importance of CPAP GERD, hiatal hernia, GI prophylaxis: Protonix + Carafate DVT prophylaxis: Heparin SQ BID Code Status: LEVEL I, FULL Dispo: Discharge to home I personally interviewed and examined the patient. I agree with history of present illness and physical exam mentioned above, I also performed my own history taking and examination. Past medical history and review of system has been obtained by myself I reviewed all pertinent labs and studies Reviewed current medications I discussed and formulated of the discharge summary mentioned above with Miss Rivas Please refer to the Summary mentioned below. As per admitting physician (this HPI was copied and pasted from the H&P for purpose of completion and to give a background about admission state and reason) " This is a 77 yo m with a h/o PE and TIA that presents to us with substernal chest pain with radiation to the right neck. The family was apparently out for dinner and soon after dinner he experienced sharp right sided neck pain and substernal chest pain. He was SOB acutely without nausea or diaphoresis. was concerned because of his history of PE and TIA and brought him into the ED for evaluation. He states that his pain is currently a 3/10 and is now just an "ache" it is worse with any sort of deep breathing. He denies any SOB now however he is laying flat with oxygen for his severe BRIANA which he does not use a CPAP for due to intolerance. He has no history of PR, non smoker but exposure to second hand smoke as a child. Patient states he would be unable to undergo exercise stress test secondary to limited ambulation. Aside from the chest pain he has been suffering from intermittent RUQ pain whenever he eats fatty food or dairy. It was originally short lived but is now lasting for many hours and the notes he has been purposely not eating as he is afraid to trigger the pain. He has no accompanied diarrhea or constipation with it or any blood in his stool. He had an appendectomy but not cholecystectomy. He has also had worsening incontinence and straining with urination. He typically suffers from a lot of nocturia however feels still as frequent but volume is low. Has only been on Doxazosin for his BPH. Patient is at BL with mild cognitive impairment. " Chest pain was right-sided appears to be musculoskeletal or GI in nature, Pain also in right upper quadrant Due to his severe underlying dementia, and the nature of pain that doesn't seem cardiac Early Childhood Director decided to monitor closely, no intervention or stress test at this point HIDA scan was obtained and showed 100% ejection fraction Pain could be secondary to gastritis, upper GI series showed esophageal dysmotility Echo normal ejection fraction, mild aortic sclerosis, no other significant finding spiked a fever 2 days ago status post initiation of Zosyn, all cultures are negative antibiotics were stopped Repeat UA was negative Recommend age appropriate cancer screening as an outpatient General Appearance: not in acute distress Eyes: normal Sclerae, extraocular muscle intact ENT: hearing grossly normal Neck: supple Respiratory/Chest: normal air entry bilateral ,no respiratory distress, no accessory muscle use Cardiovascular: regular rate, rhythm, no murmur Abdomen: non tender, soft, no masses Extremities: no edema Neurologic/Psychiatric: Awake alert oriented times place and person moves all extremities sensation intact cranial nerves II-12 appear to be intact Skin: normal color, warm/dry, no rash Richelle Mackay MD, [facility] Total Time Spent: Greater than 30 minutes This includes examination of the patient, discharge planning, medication reconciliation, and communication with other providers. Discharge Instructions Please refer to the electronic Patient Visit Report (Discharge Instructions) for additional information. Follow-Up Please follow-up with your PCP within 5-7 days Please follow-up with GI within 1 month Please follow-up/keep all of your subspecialty appointments Additional Copies To Jyoti Recinos PA-C
[2017-07-22 10:28] VITALS: BP 129/80; PULSE 79; TEMP 36.6; O2SAT 95
[2017-07-22] MEDS ORDERED: SUCR1TAB29 PO (11:31)
[2017-07-22] MEDS ORDERED: POTASSIUM CHLORIDE 20 MEQ TABCR PO ONE (12:00)
== END 2017-07-22 11:00 | disposition home or self-care (01) | DRG 392 ==
LOC: C.EDB 17:25 → C.MED 22:53 → ENRESERV 23:08 → OBSVTOIN 07-21 15:07
PROVIDERS: ADMIT Internal Medicine; ATTEND Internal Medicine
PROC: 0DB68ZX Excision of Stomach, Via Natural or Artificial Opening Endoscopic, Diagnostic (ICD-10-PCS; principal; 2017-07-21 10:22)
DX: K29.70 Gastritis, unspecified, without bleeding (principal); K44.9 Diaphragmatic hernia without obstruction or gangrene; R50.9 Fever, unspecified; E87.6 Hypokalemia; K82.8 Other specified diseases of gallbladder; K82.4 Cholesterolosis of gallbladder; K22.4 Dyskinesia of esophagus; N40.0 Benign prostatic hyperplasia without lower urinary tract symptoms; G40.909 Epilepsy, unspecified, not intractable, without status epilepticus; G31.84 Mild cognitive impairment of uncertain or unknown etiology; G47.33 Obstructive sleep apnea (adult) (pediatric); K21.9 Gastro-esophageal reflux disease without esophagitis; M35.3 Polymyalgia rheumatica; Z51.81 Encounter for therapeutic drug level monitoring; Z79.899 Other long term (current) drug therapy; Z79.82 Long term (current) use of aspirin; Z79.52 Long term (current) use of systemic steroids; Z86.711 Personal history of pulmonary embolism; Z86.73 Personal history of transient ischemic attack (TIA), and cerebral infarction without residual deficits; Z77.22 Contact with and (suspected) exposure to environmental tobacco smoke (acute) (chronic); Z83.3 Family history of diabetes mellitus; Z82.49 Family history of ischemic heart disease and other diseases of the circulatory system; Z84.89 Family history of other specified conditions